=== PATIENT | male | born 1960 | race Caucasian/White ===

== ENCOUNTER 2017-12-04 13:14 | Inpatient (IN) ==
[2017-12-04 14:10] LABS: Baso # (Auto) 0.1 th/mm3 (0.0-0.2); Baso % (Auto) 1.2 % (0.0-2.0); Eos # (Auto) 0.1 th/mm3 (0.0-0.4); Eos % (Auto) 1.7 % (0.0-4.0); Hematocrit 35.9 % (39.0-51.0); Hemoglobin 11.9 gm/dL (13.0-17.0); Lymph # (Auto) 1.1 th/mm3 (1.0-4.8); Lymph % (Auto) 12.6 % (9.0-44.0); Mean Corpuscular HGB Conc 33.2 % (32.0-36.0); Mean Corpuscular Hemoglobin 27.8 pg (27.0-34.0); Mean Corpuscular Volume 83.7 fL (80.0-100.0); Mean Platelet Volume 6.3 fL (7.0-11.0); Mono # (Auto) 0.4 th/mm3 (0.0-0.9); Mono % (Auto) 4.3 % (0.0-8.0); Neut % (Auto) 80.2 % (16.0-70.0); Platelet Count 414 th/mm3 (150-450); Red Blood Count 4.29 mil/mm3 (4.50-5.90); Red Cell Distribution Width 14.1 % (11.6-17.2); White Blood Count 8.7 th/mm3 (4.0-11.0)
[2017-12-04 14:19] LABS: Activated Partial Thrombo Time 23.9 sec (24.3-30.1); Prothrombin Time 10.2 sec (9.8-11.6)
--- NOTE | 2017-12-04 14:24 | CT ---
EXAM DATE: 12/04/2017 2:17 PM EDT AGE/SEX: 57 years / Male INDICATIONS: Abdominal pain, history of lung mass. CLINICAL DATA: This is the patient's initial encounter. Patient reports that signs and symptoms have been present for 1 day and indicates a pain score of 8/10. MEDICAL/SURGICAL HISTORY: . lung mass None. RADIATION DOSE: 5.27 CTDI (mGy) ; Combined studies COMPARISON: [facility] [place], CT CHEST W/O CONTRAST, 12/04/2017. . TECHNIQUE: Multiple contiguous axial images were obtained through the abdomen. Images were obtained using multiple row detector helical technique. Using automated exposure control and adjustment of the mA and/or kV according to patient size, radiation dose was kept as low as reasonably achievable to o btain optimal diagnostic quality images. DICOM format image data is available electronically for rev iew and comparison. FINDINGS: Atherosclerotic calcifications of the aorta and iliac vessels are noted. Liver, gallbladder, spleen, pancreas, adrenals, kidneys unremarkable. Small fat-containing umbilical hernia. Urinary bladder is u nremarkable. There are a few diverticuli without evidence of diverticulitis. The appendix is normal. No adenopathy or aneurysm. The osseous structures are intact. There are groundglass infiltrates in th e right middle lobe and right lower lobe. There is a tiny noncalcified nodule on image 12 in the righ t lower lobe measuring 2.8 mm. There is a pleural-based 3 mm nodule on image 11 in the right lower lo be, a nodule measuring 3.7 mm on image 12 at the left lung base, as well as a noncalcified left lower lobe 5.1 mm nodule. CONCLUSION: 1. Atherosclerosis. 2. Mild diverticulosis. 3. Lung nodules and patchy groundglass infiltrates. Electronically signed by: Obinna Ornelas MD 12/04/2017 2:22 PM EDT
--- NOTE | 2017-12-04 14:26 | CT ---
EXAM DATE: 12/04/2017 2:17 PM EDT AGE/SEX: 57 years / Male INDICATIONS: Upper back pain radiating to chest. History of lung mass. CLINICAL DATA: This is the patient's initial encounter. Patient reports that signs and symptoms have been present for 2 weeks and indicates a pain score of 8/10. MEDICAL/SURGICAL HISTORY: . lung mass None. RADIATION DOSE: 5.27 CTDI (mGy) ; Combined studies COMPARISON: No prior exams available for comparison. TECHNIQUE: Multiple contiguous axial images were obtained through the chest without contrast. Image s were obtained in suspended respiration using multiple row detector helical technique. Using automa ann-marie exposure control and adjustment of the mA and/or kV according to patient size, radiation dose was kept as low as reasonably achievable to obtain optimal diagnostic quality images. DICOM format imag e data is available electronically for review and comparison. FINDINGS: Imaging through the pulmonary parenchyma demonstrates COPD changes with a 5.8 x 6.3 x 5.4 cm mass in the right upper lobe. This abuts the pleura. It is highly suspicious for malignancy. It would be read edwar amenable to CT-guided biopsy. The heart is normal in size. No significant hilar or mediastinal adenopathy is seen. There is minimal atherosclerotic plaquing in the coronary arteries. No pericardial or pleural effusion is identified. The limited portions of upper abdomen are unremarkable. The visualized bony structures demonstrate degenerative changes but are otherwise intact. CONCLUSION: 1. 5.8 x 6.3 x 5.4 cm mass in the right upper lobe highly suspicious for malignancy. This lesion is readily amenable to CT-guided biopsy. 2. COPD changes within the pulmonary parenchyma. 3. No significant hilar or mediastinal adenopathy is identified. Electronically signed by: Brennan Aggarwal MD 12/04/2017 2:24 PM EDT
--- NOTE | 2017-12-04 14:29 | ED ---
HPI General Chief complaint: Back Pain/Injury Stated complaint: Back / chest pain Time Seen by Provider: 12/04/17 13:29 History of Present Illness HPI narrative: 57 male back pain and shortness of breath. Patient was at [facility] on October 16 had CAT scan that showed lung mass in the right upper lobe, he was followed up by Dr. Stockton hematology oncology who recommended a PET scan. Patient is here today because of shortness of breath and back pain. Pain is worse when he takes a deep breath in. He smokes 1 pack a day for 42+ years, he is currently non-smoker, extensive family history of cancer on both sides, upon review of his chart: CT scan of the thorax with IV contrast dated 10/16/2017:Impression: 1. Mass within the posterior segment of the right upper lobe consistent with neoplasm measuring4.3 x 5.9 cm, contiguous with the overlying pleura.2. Bilateral subcentimeter pulmonary nodules. Cannot exclude metastatic disease.3. Small left adrenal gland nodule. Cannot exclude metastatic disease.4. Centrilobular and paraseptal emphysematous changes. Related Data Previous Rx's Medication Instructions Recorded gabapentin 100 mg PO BID 30 Days #60 cap 12/08/17 ipratropium-albuterol 1 amp NEB Q4HR NEB 30 Days #180 ml 12/08/17 sennosides [Senna Lax] 17.2 mg PO Q12H PRN 30 Days #60 tab 12/08/17 Allergies Allergy/AdvReac Type Severity Reaction Status Date / Time erythromycin base Allergy Intermediate Hives Verified 12/04/17 13:48 Review of Systems ROS: all other systems reviewed are negative [facility] Medical History Medical History Lung mass (Acute) No significant past surgical history (Acute) Pulmonary nodules/lesions, multiple (Acute) Tobacco abuse, in remission (Acute) Social History Social History Substance History: No History of Abuse Second Hand Smoke Exposure: No Smoking Status: Former smoker Tobacco Type: Cigarettes Packs Per Day: 1 Cigarettes Per Day: 20.0 Years Smoked: 42 Pack-Years: 42.00 Smoking End Date: June 2017 How Often Do You Have a Drink Containing Alcohol: Never Recent Out of Country Travel within the Last 8 Weeks: No Immunization History Tetanus Immunization: >5 Years Hx Influenza Vaccine This Season: No Exam Narrative Exam Narrative: GENERAL: Alert oriented 3 no acute distress. SKIN: Focused skin assessment warm/dry. HEAD: Atraumatic. Normocephalic. EYES: Pupils equal and round. No scleral icterus. No injection or drainage. ENT: No nasal bleeding or discharge. Mucous membranes pink and moist. NECK: Trachea midline. No JVD. CARDIOVASCULAR: Regular rate and rhythm. No murmur appreciated. RESPIRATORY: No accessory muscle use. Clear to auscultation. Breath sounds equal bilaterally. GASTROINTESTINAL: Abdomen soft, non-tender, nondistended. Hepatic and splenic margins not palpable. MUSCULOSKELETAL: No obvious deformities. No clubbing. No cyanosis. No edema. NEUROLOGICAL: Awake and alert. No obvious cranial nerve deficits. Motor grossly within normal limits. Normal speech. PSYCHIATRIC: Appropriate mood and affect; insight and judgment normal. Course Initial Documented Vital Signs Temperature 97.9 F 12/04/17 13:24 Pulse Rate 99 H 12/04/17 13:24 Respiratory Rate 19 12/04/17 13:24 Blood Pressure 138/97 H 12/04/17 13:24 Pulse Oximetry 98 12/04/17 13:24 Last Documented Vital Signs Temperature 98.4 F 12/08/17 07:00 Pulse Rate 85 12/08/17 09:05 Respiratory Rate 20 12/08/17 09:05 Blood Pressure 110/64 12/08/17 03:00 Pulse Oximetry 95 12/08/17 09:05 Medical Decision Making MDM Narrative Medical decision making narrative: 57 male here for evaluation of shortness of breath and back pain. CAT scan shows lung right upper lobe concerning for malignancy, given the fact that patient is hypoxic, patient would benefit from admission for further evaluation of the mass. Medical Screen Exam Complete: Yes Emergency Medical Condition: Yes Lab Data Result diagrams: 12/08/17 04:15 12/08/17 04:15 Lab Results 12/04/17 12/04/17 12/04/17 Range/Units 13:50 13:50 13:50 WBC 8.7 (4.0-11.0) th/mm3 RBC 4.29 L (4.50-5.90) mil/mm3 Hgb 11.9 L (13.0-17.0) gm/dL Hct 35.9 L (39.0-51.0) % MCV 83.7 (80.0-100.0) fL MCH 27.8 (27.0-34.0) pg MCHC 33.2 (32.0-36.0) % RDW 14.1 (11.6-17.2) % Plt Count 414 (150-450) th/mm3 MPV 6.3 L (7.0-11.0) fL Neut % (Auto) 80.2 H (16.0-70.0) % Lymph % (Auto) 12.6 (9.0-44.0) % [place] % (Auto) 4.3 (0.0-8.0) % Eos % (Auto) 1.7 (0.0-4.0) % Baso % (Auto) 1.2 (0.0-2.0) % Neut # (Auto) 7.0 (1.8-7.7) th/mm3 Lymph # (Auto) 1.1 (1.0-4.8) th/mm3 [place] # (Auto) 0.4 (0.0-0.9) th/mm3 Eos # (Auto) 0.1 (0.0-0.4) th/mm3 Baso # (Auto) 0.1 (0.0-0.2) th/mm3 WBC Differential . Differential Comment Auto diff final PT 10.2 (9.8-11.6) sec INR 1.0 Ratio APTT 23.9 L (24.3-30.1) sec Sodium (136-145) meq/L Potassium (3.5-5.1) meq/L Chloride (98-107) meq/L Carbon Dioxide (21.0-32.0) meq/L Anion Gap (5-15) meq/L BUN (7-18) mg/dL Creatinine (0.60-1.30) mg/dL Estimated GFR (>89) mL/min POC Glucose (68-110) mg/dl Random Glucose (74-106) mg/dL Lactic Acid (0.4-2.0) mmol/L Calcium (8.5-10.1) mg/dL Total Bilirubin (0.2-1.0) mg/dL AST (15-37) U/L ALT (12-78) U/L Alkaline Phosphatase (45-117) U/L Total Creatine Kinase Cancelled Troponin I Cancelled Total Protein (6.4-8.2) g/dL Albumin (3.4-5.0) g/dL Urine Color (Yellw/Straw) Urine Clarity (Clear) Urine pH (5.0-8.5) Ur Specific Led[place] (1.002-1.035) Urine Protein (Neg-Trace) mg/dL Urine Glucose (UA) (Negative) mg/dL Urine Ketones (Negative) mg/dL Urine Occult Blood (Negative) Urine Nitrate (Negative) Urine Bilirubin (Negative) Urine Urobilinogen (Less than 2) mg/dL Ur Leukocyte Esterase (Negative) Urine WBC (0-5) /hpf Hyaline Casts (0-3) /lpf Urine Mucus (Occasional) /lpf Micro UA Comment Ur Microscopic Review Urine Culture Comments 12/04/17 12/04/17 12/04/17 Range/Units 13:50 13:55 17:24 WBC (4.0-11.0) th/mm3 RBC (4.50-5.90) mil/mm3 Hgb (13.0-17.0) gm/dL Hct (39.0-51.0) % MCV (80.0-100.0) fL MCH (27.0-34.0) pg MCHC (32.0-36.0) % RDW (11.6-17.2) % Plt Count (150-450) th/mm3 MPV (7.0-11.0) fL Neut % (Auto) (16.0-70.0) % Lymph % (Auto) (9.0-44.0) % [place] % (Auto) (0.0-8.0) % Eos % (Auto) (0.0-4.0) % Baso % (Auto) (0.0-2.0) % Neut # (Auto) (1.8-7.7) th/mm3 Lymph # (Auto) (1.0-4.8) th/mm3 [place] # (Auto) (0.0-0.9) th/mm3 Eos # (Auto) (0.0-0.4) th/mm3 Baso # (Auto) (0.0-0.2) th/mm3 WBC Differential Differential Comment PT (9.8-11.6) sec INR Ratio APTT (24.3-30.1) sec Sodium 138 (136-145) meq/L Potassium 3.4 L (3.5-5.1) meq/L Chloride 102 (98-107) meq/L Carbon Dioxide 25.9 (21.0-32.0) meq/L Anion Gap 10 (5-15) meq/L BUN 14 (7-18) mg/dL Creatinine 1.33 H (0.60-1.30) mg/dL Estimated GFR 55 L (>89) mL/min POC Glucose (68-110) mg/dl Random Glucose 89 (74-106) mg/dL Lactic Acid 1.8 (0.4-2.0) mmol/L Calcium 9.0 (8.5-10.1) mg/dL Total Bilirubin 0.3 (0.2-1.0) mg/dL AST 18 (15-37) U/L ALT 12 (12-78) U/L Alkaline Phosphatase 92 (45-117) U/L Total Creatine Kinase 70 Troponin I Less than 0.02 L Total Protein 7.4 (6.4-8.2) g/dL Albumin 3.6 (3.4-5.0) g/dL Urine Color Yellow (Yellw/Straw) Urine Clarity Clear (Clear) Urine pH 5.0 (5.0-8.5) Ur Specific [place] 1.017 (1.002-1.035) Urine Protein Negative (Neg-Trace) mg/dL Urine Glucose (UA) Negative (Negative) mg/dL Urine Ketones Negative (Negative) mg/dL Urine Occult Blood Negative (Negative) Urine Nitrate Negative (Negative) Urine Bilirubin Negative (Negative) Urine Urobilinogen Less than 2 (Less than 2) mg/dL Ur Leukocyte Esterase Negative (Negative) Urine WBC 1 (0-5) /hpf Hyaline Casts 1 (0-3) /lpf Urine Mucus Few H (Occasional) /lpf Micro UA Comment Culture not ind Ur Microscopic Review Not Reportable Urine Culture Comments Culture not ind 12/04/17 12/05/17 12/05/17 Range/Units 21:19 04:52 04:52 WBC 7.4 (4.0-11.0) th/mm3 RBC 4.01 L (4.50-5.90) mil/mm3 Hgb 11.1 L (13.0-17.0) gm/dL Hct 33.7 L (39.0-51.0) % MCV 83.9 (80.0-100.0) fL MCH 27.8 (27.0-34.0) pg MCHC 33.1 (32.0-36.0) % RDW 13.9 (11.6-17.2) % Plt Count 374 (150-450) th/mm3 MPV 6.3 L (7.0-11.0) fL Neut % (Auto) 68.9 (16.0-70.0) % Lymph % (Auto) 19.4 (9.0-44.0) % [place] % (Auto) 6.8 (0.0-8.0) % Eos % (Auto) 4.0 (0.0-4.0) % Baso % (Auto) 0.9 (0.0-2.0) % Neut # (Auto) 5.1 (1.8-7.7) th/mm3 Lymph # (Auto) 1.4 (1.0-4.8) th/mm3 [place] # (Auto) 0.5 (0.0-0.9) th/mm3 Eos # (Auto) 0.3 (0.0-0.4) th/mm3 Baso # (Auto) 0.1 (0.0-0.2) th/mm3 WBC Differential . Differential Comment Auto diff final PT 10.0 (9.8-11.6) sec INR 1.0 Ratio APTT (24.3-30.1) sec Sodium (136-145) meq/L Potassium (3.5-5.1) meq/L Chloride (98-107) meq/L Carbon Dioxide (21.0-32.0) meq/L Anion Gap (5-15) meq/L BUN (7-18) mg/dL Creatinine (0.60-1.30) mg/dL Estimated GFR (>89) mL/min POC Glucose (68-110) mg/dl Random Glucose (74-106) mg/dL Lactic Acid (0.4-2.0) mmol/L Calcium (8.5-10.1) mg/dL Total Bilirubin (0.2-1.0) mg/dL AST (15-37) U/L ALT (12-78) U/L Alkaline Phosphatase (45-117) U/L Total Creatine Kinase Troponin I Less than 0.02 L Total Protein (6.4-8.2) g/dL Albumin (3.4-5.0) g/dL Urine Color (Yellw/Straw) Urine Clarity (Clear) Urine pH (5.0-8.5) Ur Specific [place] (1.002-1.035) Urine Protein (Neg-Trace) mg/dL Urine Glucose (UA) (Negative) mg/dL Urine Ketones (Negative) mg/dL Urine Occult Blood (Negative) Urine Nitrate (Negative) Urine Bilirubin (Negative) Urine Urobilinogen (Less than 2) mg/dL Ur Leukocyte Esterase (Negative) Urine WBC (0-5) /hpf Hyaline Casts (0-3) /lpf Urine Mucus (Occasional) /lpf Micro UA Comment Ur Microscopic Review Urine Culture Comments 12/05/17 12/05/17 12/06/17 Range/Units 04:52 08:11 07:17 WBC (4.0-11.0) th/mm3 RBC (4.50-5.90) mil/mm3 Hgb (13.0-17.0) gm/dL Hct (39.0-51.0) % MCV (80.0-100.0) fL MCH (27.0-34.0) pg MCHC (32.0-36.0) % RDW (11.6-17.2) % Plt Count (150-450) th/mm3 MPV (7.0-11.0) fL Neut % (Auto) (16.0-70.0) % Lymph % (Auto) (9.0-44.0) % [place] % (Auto) (0.0-8.0) % Eos % (Auto) (0.0-4.0) % Baso % (Auto) (0.0-2.0) % Neut # (Auto) (1.8-7.7) th/mm3 Lymph # (Auto) (1.0-4.8) th/mm3 [place] # (Auto) (0.0-0.9) th/mm3 Eos # (Auto) (0.0-0.4) th/mm3 Baso # (Auto) (0.0-0.2) th/mm3 WBC Differential Differential Comment PT (9.8-11.6) sec INR Ratio APTT (24.3-30.1) sec Sodium 140 137 (136-145) meq/L Potassium 4.1 3.8 (3.5-5.1) meq/L Chloride 104 102 (98-107) meq/L Carbon Dioxide 27.6 26.9 (21.0-32.0) meq/L Anion Gap 8 8 (5-15) meq/L BUN 12 11 (7-18) mg/dL Creatinine 1.28 1.29 (0.60-1.30) mg/dL Estimated GFR 58 L 57 L (>89) mL/min POC Glucose 99 (68-110) mg/dl Random Glucose 83 109 H (74-106) mg/dL Lactic Acid (0.4-2.0) mmol/L Calcium 8.8 8.6 (8.5-10.1) mg/dL Total Bilirubin 0.3 0.2 (0.2-1.0) mg/dL AST 16 16 (15-37) U/L ALT 12 10 L (12-78) U/L Alkaline Phosphatase 88 86 (45-117) U/L Total Creatine Kinase Troponin I Total Protein 7.2 6.4 D (6.4-8.2) g/dL Albumin 3.2 L 2.9 L (3.4-5.0) g/dL Urine Color (Yellw/Straw) Urine Clarity (Clear) Urine pH (5.0-8.5) Ur Specific [place] (1.002-1.035) Urine Protein (Neg-Trace) mg/dL Urine Glucose (UA) (Negative) mg/dL Urine Ketones (Negative) mg/dL Urine Occult Blood (Negative) Urine Nitrate (Negative) Urine Bilirubin (Negative) Urine Urobilinogen (Less than 2) mg/dL Ur Leukocyte Esterase (Negative) Urine WBC (0-5) /hpf Hyaline Casts (0-3) /lpf Urine Mucus (Occasional) /lpf Micro UA Comment Ur Microscopic Review Urine Culture Comments 12/06/17 12/07/17 12/07/17 Range/Units 07:17 05:13 05:13 WBC 7.8 7.5 (4.0-11.0) th/mm3 RBC 3.70 L 3.73 L (4.50-5.90) mil/mm3 Hgb 10.4 L 10.4 L (13.0-17.0) gm/dL Hct 30.5 L 31.1 L (39.0-51.0) % MCV 82.4 83.3 (80.0-100.0) fL MCH 28.1 27.7 (27.0-34.0) pg MCHC 34.1 33.3 (32.0-36.0) % RDW 14.1 14.0 (11.6-17.2) % Plt Count 336 319 (150-450) th/mm3 MPV 6.2 L 6.2 L (7.0-11.0) fL Neut % (Auto) 74.6 H 69.2 (16.0-70.0) % Lymph % (Auto) 12.4 16.3 (9.0-44.0) % [place] % (Auto) 8.5 H 9.0 H (0.0-8.0) % Eos % (Auto) 3.9 4.7 H (0.0-4.0) % Baso % (Auto) 0.6 0.8 (0.0-2.0) % Neut # (Auto) 5.8 5.2 (1.8-7.7) th/mm3 Lymph # (Auto) 1.0 1.2 (1.0-4.8) th/mm3 [place] # (Auto) 0.7 0.7 (0.0-0.9) th/mm3 Eos # (Auto) 0.3 0.3 (0.0-0.4) th/mm3 Baso # (Auto) 0.0 0.1 (0.0-0.2) th/mm3 WBC Differential . . Differential Comment Auto diff final Auto diff final PT (9.8-11.6) sec INR Ratio APTT (24.3-30.1) sec Sodium 139 (136-145) meq/L Potassium 4.0 (3.5-5.1) meq/L Chloride 104 (98-107) meq/L Carbon Dioxide 26.8 (21.0-32.0) meq/L Anion Gap 8 (5-15) meq/L BUN 14 (7-18) mg/dL Creatinine 1.34 H (0.60-1.30) mg/dL Estimated GFR 55 L (>89) mL/min POC Glucose (68-110) mg/dl Random Glucose 99 (74-106) mg/dL Lactic Acid (0.4-2.0) mmol/L Calcium 8.1 L (8.5-10.1) mg/dL Total Bilirubin 0.2 (0.2-1.0) mg/dL AST 13 L (15-37) U/L ALT 10 L (12-78) U/L Alkaline Phosphatase 87 (45-117) U/L Total Creatine Kinase Troponin I Total Protein 6.5 (6.4-8.2) g/dL Albumin 3.0 L (3.4-5.0) g/dL Urine Color (Yellw/Straw) Urine Clarity (Clear) Urine pH (5.0-8.5) Ur Specific [place] (1.002-1.035) Urine Protein (Neg-Trace) mg/dL Urine Glucose (UA) (Negative) mg/dL Urine Ketones (Negative) mg/dL Urine Occult Blood (Negative) Urine Nitrate (Negative) Urine Bilirubin (Negative) Urine Urobilinogen (Less than 2) mg/dL Ur Leukocyte Esterase (Negative) Urine WBC (0-5) /hpf Hyaline Casts (0-3) /lpf Urine Mucus (Occasional) /lpf Micro UA Comment Ur Microscopic Review Urine Culture Comments 12/08/17 12/08/17 Range/Units 04:15 04:15 WBC 7.5 (4.0-11.0) th/mm3 RBC 3.76 L (4.50-5.90) mil/mm3 Hgb 10.6 L (13.0-17.0) gm/dL Hct 31.5 L (39.0-51.0) % MCV 83.9 (80.0-100.0) fL MCH 28.3 (27.0-34.0) pg MCHC 33.7 (32.0-36.0) % RDW 14.2 (11.6-17.2) % Plt Count 339 (150-450) th/mm3 MPV 6.2 L (7.0-11.0) fL Neut % (Auto) 72.9 H (16.0-70.0) % Lymph % (Auto) 15.5 (9.0-44.0) % [place] % (Auto) 7.8 (0.0-8.0) % Eos % (Auto) 3.1 (0.0-4.0) % Baso % (Auto) 0.7 (0.0-2.0) % Neut # (Auto) 5.5 (1.8-7.7) th/mm3 Lymph # (Auto) 1.2 (1.0-4.8) th/mm3 [place] # (Auto) 0.6 (0.0-0.9) th/mm3 Eos # (Auto) 0.2 (0.0-0.4) th/mm3 Baso # (Auto) 0.1 (0.0-0.2) th/mm3 WBC Differential . Differential Comment Auto diff final PT (9.8-11.6) sec INR Ratio APTT (24.3-30.1) sec Sodium 137 (136-145) meq/L Potassium 4.1 (3.5-5.1) meq/L Chloride 103 (98-107) meq/L Carbon Dioxide 24.9 (21.0-32.0) meq/L Anion Gap 9 (5-15) meq/L BUN 16 (7-18) mg/dL Creatinine 1.36 H (0.60-1.30) mg/dL Estimated GFR 54 L (>89) mL/min POC Glucose (68-110) mg/dl Random Glucose 100 (74-106) mg/dL Lactic Acid (0.4-2.0) mmol/L Calcium 8.6 (8.5-10.1) mg/dL Total Bilirubin (0.2-1.0) mg/dL AST (15-37) U/L ALT (12-78) U/L Alkaline Phosphatase (45-117) U/L Total Creatine Kinase Troponin I Total Protein (6.4-8.2) g/dL Albumin (3.4-5.0) g/dL Urine Color (Yellw/Straw) Urine Clarity (Clear) Urine pH (5.0-8.5) Ur Specific [place] (1.002-1.035) Urine Protein (Neg-Trace) mg/dL Urine Glucose (UA) (Negative) mg/dL Urine Ketones (Negative) mg/dL Urine Occult Blood (Negative) Urine Nitrate (Negative) Urine Bilirubin (Negative) Urine Urobilinogen (Less than 2) mg/dL Ur Leukocyte Esterase (Negative) Urine WBC (0-5) /hpf Hyaline Casts (0-3) /lpf Urine Mucus (Occasional) /lpf Micro UA Comment Ur Microscopic Review Urine Culture Comments Imaging Data Radiologist's impression: Abdomen/Pelvis CT 12/04/17 13:48 CONCLUSION: 1. Atherosclerosis. 2. Mild diverticulosis. 3. Lung nodules and patchy groundglass infiltrates. Chest CT 12/04/17 13:48 CONCLUSION: 1. 5.8 x 6.3 x 5.4 cm mass in the right upper lobe highly suspicious for malignancy. This lesion is readily amenable to CT-guided biopsy. 2. COPD changes within the pulmonary parenchyma. 3. No significant hilar or mediastinal adenopathy is identified. Head CT 12/05/17 00:00 CONCLUSION: Abnormal. Recommend further evaluation with brain MRI and MRA Lung Biopsy CT 12/05/17 00:00 CONCLUSION: 1. Uncomplicated CT guided biopsy. Chest X-Ray 12/05/17 09:03 CONCLUSION: No pneumothorax Head MRI 12/06/17 00:00 CONCLUSION: 1. Negative MR Brain with and without contrast. Head MRA 12/06/17 00:00 CONCLUSION: 1. Normal variant with origin of the right posterior cerebral artery. 2. Otherwise normal MRA without evidence of steno-occlusive disease, aneurysm, vascular malformation or vasculopathy. Discharge Plan Discharge Disposition Patient Disposition: 01 Discharge Home Discharge Condition Condition: Stable Discharge Order Discharge Orders: Discharge Order (Routine); Ordered 12/08/17 Ordered By: Michelle Nuno Discharge Details Anticipated Discharge Date: 12/08/17 Physicians Team ED Provider: Masoud Howard Primary Care Provider: Primary Care Tushar,Jasmin Attending Provider: Mackenzie Lancaster Other Providers: Cooper Mckeon Cary Status ED Status: Left Department Discharge Information Discharge Date/Time: 12/04/17 16:30
[2017-12-04 14:35] LABS: Albumin 3.6 g/dL (3.4-5.0); Anion Gap 10 meq/L (5-15); Aspartate Aminotransferase 18 U/L (15-37); Blood Urea Nitrogen 14 mg/dL (7-18); Carbon Dioxide 25.9 meq/L (21.0-32.0); Chloride 102 meq/L (98-107); Glomerular Filtration Rate 55 mL/min (>89); Glucose,Random 89 mg/dL (74-106); Potassium 3.4 meq/L (3.5-5.1); Sodium 138 meq/L (136-145)
[2017-12-04 14:39] LABS: Alanine Aminotransferase 12 U/L (12-78); Alkaline Phosphatase 92 U/L (45-117); Total Protein 7.4 g/dL (6.4-8.2)
[2017-12-04 14:40] LABS: Creatine Kinase 70 U/L (39-308)
--- NOTE | 2017-12-04 14:59 | P.HPFP ---
History of Present Illness Primary Care Physician: No Primary Care Physician <Mackenzie Lancaster - 12/05/17 13:43> No Primary Care Physician <Michelle Nuno - 12/04/17 14:59> History of Present Illness: 57-year-old male with a history of right lung mass who presented to the ED with severe right shoulder pain. The pain is constant, stabbing in nature, and radiates from the back through the front of the chest. Patient was seen at [facility] about 6 weeks ago for the same right shoulder pain and was found to have a right lung mass. Patient saw Dr. Mckeon, oncologist, one time as an outpatient. Dr. Mckeon suggested patient to have a PET scan and lung biopsy. Patient was prescribed pain medicines and to follow- up after these tests were completed. Due to insurance issues, patient was not able to complete these or fill the pain medications. Today patient reports that he is short of breath, but this has been his normal for the past several weeks. He does report increased dyspnea on exertion which is made it difficult for him get through his work days. He has a reactive cough with bloody sputum. Past medical history: Patient has not seen a physician in many years. He denies any other medical problems. 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, lives with son in [facility] [id number] history but patient quit smoking 140 days ago Denies drug use or alcohol use Code Status: Full code <Michelle Nuno - 12/04/17 16:19> - Diagnosis (1) Mass of right lung (2) Back pain (3) COPD (chronic obstructive pulmonary disease) (4) Elevated serum creatinine (5) History of tobacco abuse (6) DVT prophylaxis (7) Nutrition, metabolism, and development symptoms <Mackenzie Lancaster - 12/05/17 13:43> (1) Mass of right lung (2) Back pain (3) COPD (chronic obstructive pulmonary disease) (4) Elevated serum creatinine (5) History of tobacco abuse (6) DVT prophylaxis (7) Nutrition, metabolism, and development symptoms <Michelle Nuno - 12/04/17 16:21> Inpatient Certification: I certify that the inpatient services were ordered in accordance with Medicare regulations governing the order. This includes certification that hospital inpatient services are reasonable and necessary and in the case of services not specified as inpatient-only under 42 CFR 419.22(n), that they are appropriately provided as inpatient services in accordance to with the 2-midnight benchmark under 43 CFR 412.3(e) <Mackenzie Lancaster - 12/05/17 13:43> Review of Systems Constitutional: Reports headache(s), Denies body ache(s), Denies chills, Denies fever(s), Denies night sweats <Michelle Nuno Aryan - 12/04/17 15:20> Eyes: Denies blurry vision, Denies bulging eyes, Denies change in vision < Michelle Nuno Aryan 12/04/17 15:20> Ears, Nose, Mouth, and Throat: Reports headache(s) <Michelle Nuno - 15:20> Cardiovascular: Denies chest pain, Denies leg swelling <Michelle Nuno - 15:20> Respiratory: Reports cough, Reports coughing up blood, Reports shortness of breath, Reports shortness of breath with activity <Michelle Nuno - 15:20> Gastrointestinal: Reports abdominal pain, Reports constipation, Reports heartburn, Denies black, tarry stools <Michelle Nuno - 12/04/17 15:20> Genitourinary: Denies blood in urine, Denies difficulty urinating <Michelle Nuno 12/04/17 15:20> Musculoskeletal: Reports back pain <Michelle Nuno - 12/04/17 15:20> Neurologic: Reports headache(s) <Michelle Nuno 12/04/17 15:20> Psychiatric: Reports anxiety, Reports confusion <Michelle Nuno 12/04/17 15:20> PMFSH - History History Provided By: Patient <Michelle Nuno 12/04/17 14:59> - Medical History Medical History: Medical History (Last Updated 12/04/17 @ 13:45 by Esther Fonseca) Lung mass No significant past surgical history <Mackenzie Lancaster - 12/05/17 13:43> Medical History (Last Updated 12/04/17 @ 13:45 by Esther Fonseca) Lung mass No significant past surgical history <Michelle Nuno - 12/04/17 14:59> - Tobacco History Second Hand Smoke Exposure: No <YaakovMichelle Baeza - 12/04/17 14:59> Tobacco Use In Past 30 Days: No <YaakovMichelle Baeza - 12/04/17 14:59> Smoking Status: Former smoker <YaakovMichelle Baeza - 12/04/17 14:59> Tobacco Type: Cigarettes <YaakovMichelle Baeza - 12/04/17 14:59> - Alcohol History How Often Do You Have a Drink Containing Alcohol: Never <RobertariasmitaMichelle Baeza - 12/04/17 14:59> - Substance Use History Substance History: No History of Abuse <YaakovMichelle Baeza - 12/04/17 14:59> - Travel History Recent Travel Out of the Country Within the Last 8 Weeks: No <RobertemmaMichelle Baeza - 12/04/17 14:59> - Immunization History Tetanus Immunization: >5 Years <RobertaaronMichelle Baeza - 12/04/17 14:59> Hx Influenza Vaccine This Season: No <RobertaaronMichelle Baeza 12/04/17 14:59> Medications and Allergies Allergies Allergy/AdvReac Type Severity Reaction Status Date / Time erythromycin base Allergy Intermediate Hives Verified 12/04/17 13:48 <Mackenzie Lancaster - 12/05/17 13:43> Home Medications Medication Instructions Recorded Confirmed Type No Known Home Medications 12/04/17 12/04/17 History <Mackenzie Lancaster - 12/05/17 13:43> Active Medications: Active Medications Acetaminophen (Tylenol) 650 mg PO Q6HR PRN PRN Reason: PAIN SCALE 1 TO 2 Al Hydroxide/Mg Hydroxide (Milk Of Magnesia Liq) 30 ml PO Q12H PRN PRN Reason: Mild Constipation Albuterol (Duoneb Neb (Arina)) 1 ampul NEB Q4HR NEB ARINA Last Admin: 12/05/17 11:01 Dose: Not Given Bisacodyl (Dulcolax Supp) 10 mg RECTAL DAILY PRN PRN Reason: SEVERE CONSITIPATION Lactulose (Lactulose Liq) 30 ml PO DAILY PRN PRN Reason: SEVERE CONSITIPATION Morphine Sulfate (Morphine Inj) 2 mg IV.PUSH Q3H PRN PRN Reason: BREAKTHROUGH PAIN Naloxone HCl (Narcan Inj) 0.4 mg IV.PUSH UNSCH PRN PRN Reason: SEE LABEL COMMENTS Ondansetron HCl (Zofran Inj) 4 mg IV.PUSH Q6H PRN PRN Reason: NAUSEA OR VOMITING Oxycodone HCl (Roxicodone) 5 mg PO Q4H PRN PRN Reason: PAIN SCALE 3 TO 5 Oxycodone HCl (Roxicodone) 10 mg PO Q4H PRN PRN Reason: PAIN SCALE 6 TO 10 Last Admin: 12/05/17 00:28 Dose: 10 mg Sennosides (Senokot) 17.2 mg PO Q12H PRN PRN Reason: Moderate Constipation Zolpidem Tartrate (Ambien) 5 mg PO HS PRN PRN Reason: INSOMNIA <Mackenzie Lancaster - 12/05/17 13:43> Exam Vital signs: Vital Signs 12/04/17 14:27 12/04/17 14:30 12/04/17 16:25 Temperature 97.8 F 97.7 F Pulse Rate 98 H 78 Respiratory Rate 24 20 Blood Pressure 124/88 130/77 Pulse Oximetry 92 L 92 L 99 12/04/17 16:49 12/04/17 20:00 12/05/17 00:00 Temperature 97.6 F 97.9 F 98.7 F Pulse Rate 80 89 84 Respiratory Rate 21 20 18 Blood Pressure 144/84 H 137/82 144/91 H Pulse Oximetry 99 99 98 12/05/17 00:19 12/05/17 04:00 12/05/17 07:57 Temperature 98 F Pulse Rate 94 H 81 80 Respiratory Rate 14 18 14 Blood Pressure 131/83 Pulse Oximetry 98 100 12/05/17 08:14 12/05/17 09:15 12/05/17 09:30 Temperature 97.7 F Pulse Rate 85 82 83 Respiratory Rate 18 18 18 Blood Pressure 133/89 119/84 127/76 Pulse Oximetry 97 92 L 96 12/05/17 10:00 12/05/17 10:30 12/05/17 11:00 Temperature Pulse Rate 84 82 84 Respiratory Rate 18 18 Blood Pressure 118/77 116/86 116/83 Pulse Oximetry 95 95 95 12/05/17 12:00 Temperature 98.1 F Pulse Rate 82 Respiratory Rate 17 Blood Pressure 124/80 Pulse Oximetry 95 Intake & Output 12/04/17 12/05/17 12/05/17 18:59 06:59 18:59 Output Total 150 / 150 Balance -150 / -150 Weight 81.647 kg 81.647 kg Output: Urine 150 / 150 Other: # Voids 2 <Mackenzie Lancaster - 12/05/17 13:43> Vital Signs 12/04/17 13:24 12/04/17 14:27 12/04/17 14:30 Temperature 97.9 F 97.8 F Pulse Rate 99 H 98 H Respiratory Rate 19 24 Blood Pressure 138/97 H 124/88 Pulse Oximetry 98 92 L 92 L Intake & Output 12/03/17 12/04/17 12/04/17 18:59 06:59 18:59 Weight 81.647 kg <Dexter Nunoa A - 12/04/17 14:59> - Constitutional Comments: Tearful at times when discussing lung mass <Dexter Nunoa A - 12/04/17 16:19> - Routine HEENT Exam Head: Present: normocephalic, atraumatic <Dexter Nunoa A - 12/04/17 16:19> Eye: Present: PERRL, conjunctivae pink <YaakovMichelle A - 12/04/17 16:19> ENT: Present: mucous membranes moist <YaakovMichelle A - 12/04/17 16:19> - Routine Neck Exam Present: supple <Dexter Nunoa A - 12/04/17 16:19> - Routine Respiratory Exam Present: crackles (at bilateral lung bases), distant breath sounds. Absent: respiratory distress <Dexter Nunoa A - 12/04/17 16:19> - Routine Cardiovascular Exam Present: RRR, S1, S2 <Michelle Nuno - 12/04/17 16:19> - Routine Abdominal Exam Present: soft, normoactive bowel sounds. Absent: tenderness <Michelle Nuno - 12/04/17 16:19> - Routine Neurological Exam Present: alert, oriented X3 <Michelle Nuno - 12/04/17 16:19> Results - Labs Result diagrams: 12/05/17 04:52 12/05/17 04:52 <TonnyMackenzie - 12/05/17 13:43> Abnormal lab results 12/04/17 12/04/17 12/04/17 Range/Units 13:50 13:50 13:50 RBC 4.29 L (4.50-5.90) mil/mm3 Hgb 11.9 L (13.0-17.0) gm/dL Hct 35.9 L (39.0-51.0) % MPV 6.3 L (7.0-11.0) fL Neut % (Auto) 80.2 H (16.0-70.0) % APTT 23.9 L (24.3-30.1) sec Potassium 3.4 L (3.5-5.1) meq/L Creatinine 1.33 H (0.60-1.30) mg/dL Estimated GFR 55 L (>89) mL/min Troponin I Less than 0.02 L (0.02-0.05) ng/mL Albumin (3.4-5.0) g/dL Urine Mucus (Occasional) /lpf 12/04/17 12/04/17 12/05/17 Range/Units 17:24 21:19 04:52 RBC 4.01 L (4.50-5.90) mil/mm3 Hgb 11.1 L (13.0-17.0) gm/dL Hct 33.7 L (39.0-51.0) % MPV 6.3 L (7.0-11.0) fL Neut % (Auto) (16.0-70.0) % APTT (24.3-30.1) sec Potassium (3.5-5.1) meq/L Creatinine (0.60-1.30) mg/dL Estimated GFR (>89) mL/min Troponin I Less than 0.02 L (0.02-0.05) ng/mL Albumin (3.4-5.0) g/dL Urine Mucus Few H (Occasional) /lpf 12/05/17 Range/Units 04:52 RBC (4.50-5.90) mil/mm3 Hgb (13.0-17.0) gm/dL Hct (39.0-51.0) % MPV (7.0-11.0) fL Neut % (Auto) (16.0-70.0) % APTT (24.3-30.1) sec Potassium (3.5-5.1) meq/L Creatinine (0.60-1.30) mg/dL Estimated GFR 58 L (>89) mL/min Troponin I (0.02-0.05) ng/mL Albumin 3.2 L (3.4-5.0) g/dL Urine Mucus (Occasional) /lpf Short CBC 12/04/17 12/05/17 Range/Units 13:50 04:52 WBC 8.7 7.4 (4.0-11.0) th/mm3 Hgb 11.9 L 11.1 L (13.0-17.0) gm/dL Hct 35.9 L 33.7 L (39.0-51.0) % Plt Count 414 374 (150-450) th/mm3 BMP 12/04/17 12/05/17 13:50 04:52 Sodium 138 140 Potassium 3.4 L 4.1 Chloride 102 104 Carbon Dioxide 25.9 27.6 BUN 14 12 Creatinine 1.33 H 1.28 Calcium 9.0 8.8 Cardiac Enzymes 12/04/17 12/04/17 12/04/17 Range/Units 13:50 13:50 21:19 Total Creatine Kinase Cancelled 70 Troponin I Cancelled Less than 0.02 L Less than 0.02 L Liver Function 12/04/17 12/05/17 Range/Units 13:50 04:52 Total Bilirubin 0.3 0.3 (0.2-1.0) mg/dL AST 18 16 (15-37) U/L ALT 12 12 (12-78) U/L Alkaline Phosphatase 92 88 (45-117) U/L Albumin 3.6 3.2 L (3.4-5.0) g/dL Urine 12/04/17 Range/Units 17:24 Urine Color Yellow (Yellw/Straw) Urine Clarity Clear (Clear) Urine pH 5.0 (5.0-8.5) Ur Specific [place] 1.017 (1.002-1.035) Urine Protein Negative (Neg-Trace) mg/dL Urine Glucose (UA) Negative (Negative) mg/dL <Mackenzie Lancaster - 12/05/17 13:43> Abnormal lab results 12/04/17 12/04/17 12/04/17 Range/Units 13:50 13:50 13:50 RBC 4.29 L (4.50-5.90) mil/mm3 Hgb 11.9 L (13.0-17.0) gm/dL Hct 35.9 L (39.0-51.0) % MPV 6.3 L (7.0-11.0) fL Neut % (Auto) 80.2 H (16.0-70.0) % APTT 23.9 L (24.3-30.1) sec Potassium 3.4 L (3.5-5.1) meq/L Creatinine 1.33 H (0.60-1.30) mg/dL Estimated GFR 55 L (>89) mL/min Troponin I Less than 0.02 L (0.02-0.05) ng/mL Short CBC 12/04/17 Range/Units 13:50 WBC 8.7 (4.0-11.0) th/mm3 Hgb 11.9 L (13.0-17.0) gm/dL Hct 35.9 L (39.0-51.0) % Plt Count 414 (150-450) th/mm3 BMP 12/04/17 13:50 Sodium 138 Potassium 3.4 L Chloride 102 Carbon Dioxide 25.9 BUN 14 Creatinine 1.33 H Calcium 9.0 Cardiac Enzymes 12/04/17 12/04/17 Range/Units 13:50 13:50 Total Creatine Kinase Cancelled 70 Troponin I Cancelled Less than 0.02 L Liver Function 12/04/17 Range/Units 13:50 Total Bilirubin 0.3 (0.2-1.0) mg/dL AST 18 (15-37) U/L ALT 12 (12-78) U/L Alkaline Phosphatase 92 (45-117) U/L Albumin 3.6 (3.4-5.0) g/dL <Michelle Nuno - 12/04/17 14:59> - Imaging Impressions Abdomen/Pelvis CT 12/04/17 13:48 CONCLUSION: 1. Atherosclerosis. 2. Mild diverticulosis. 3. Lung nodules and patchy groundglass infiltrates. Chest CT 12/04/17 13:48 CONCLUSION: 1. 5.8 x 6.3 x 5.4 cm mass in the right upper lobe highly suspicious for malignancy. This lesion is readily amenable to CT-guided biopsy. 2. COPD changes within the pulmonary parenchyma. 3. No significant hilar or mediastinal adenopathy is identified. Head CT 12/05/17 00:00 CONCLUSION: Abnormal. Recommend further evaluation with brain MRI and MRA Lung Biopsy CT 12/05/17 00:00 CONCLUSION: 1. Uncomplicated CT guided biopsy. Chest X-Ray 12/05/17 09:03 CONCLUSION: No pneumothorax <Mackenzie Lancaster - 12/05/17 13:43> Impressions Abdomen/Pelvis CT 12/04/17 13:48 CONCLUSION: 1. Atherosclerosis. 2. Mild diverticulosis. 3. Lung nodules and patchy groundglass infiltrates. Chest CT 12/04/17 13:48 CONCLUSION: 1. 5.8 x 6.3 x 5.4 cm mass in the right upper lobe highly suspicious for malignancy. This lesion is readily amenable to CT-guided biopsy. 2. COPD changes within the pulmonary parenchyma. 3. No significant hilar or mediastinal adenopathy is identified. <Michelle Nuno - 12/04/17 14:59> Caprini VTE Risk Assessment Caprini VTE Risk Assessment: Moderate/High Risk (score >= 2) <Michelle Nuno - 12/04/17 16:19> Caprini Risk Assessment Model: Point Value = 1 Point Value = 2 Point Value = 3 Point Value = 5 Age 41-60 Minor surgery BMI > 25 kg/m2 Swollen legs Varicose veins or History of unexplained or recurrent spontaneous Oral contraceptives or hormone replacement Sepsis (< 1 month) Serious lung disease, including pneumonia (< 1 month) Abnormal pulmonary function Acute myocardial infarction Congestive heart failure (< 1 month) History of inflammatory bowel disease Medical patient at bed rest Age 61-74 Arthroscopic surgery Major open surgery (> 45 min) Laparoscopic surgery (> 45 min) Malignancy Confined to bed (> 72 hours) Immobilizing plaster cast Central venous access Age >= 75 History of VTE Family history of VTE Factor V Leiden Prothrombin [id number] Lupus anticoagulant Anticardiolipin antibodies Elevated serum homocysteine Heparin-induced thrombocytopenia Other congenital or acquired thrombophilia Stroke (< 1 month) Elective arthroplasty Hip, pelvis, or leg fracture Acute spinal cord injury (< 1 month) <Mackenzie Lancaster - 12/05/17 13:43> Point Value = 1 Point Value = 2 Point Value = 3 Point Value = 5 Age 41-60 Minor surgery BMI > 25 kg/m2 Swollen legs Varicose veins or History of unexplained or recurrent spontaneous Oral contraceptives or hormone replacement Sepsis (< 1 month) Serious lung disease, including pneumonia (< 1 month) Abnormal pulmonary function Acute myocardial infarction Congestive heart failure (< 1 month) History of inflammatory bowel disease Medical patient at bed rest Age 61-74 Arthroscopic surgery Major open surgery (> 45 min) Laparoscopic surgery (> 45 min) Malignancy Confined to bed (> 72 hours) Immobilizing plaster cast Central venous access Age >= 75 History of VTE Family history of VTE Factor V Leiden Prothrombin [id number] Lupus anticoagulant Anticardiolipin antibodies Elevated serum homocysteine Heparin-induced thrombocytopenia Other congenital or acquired thrombophilia Stroke (< 1 month) Elective arthroplasty Hip, pelvis, or leg fracture Acute spinal cord injury (< 1 month) <Michelle Nuno - 12/04/17 14:59> Prophylaxis Regimen: Total Risk Factor Score Risk Level Prophylaxis Regimen 0-1 Low Early ambulation 2 Moderate Order ONE of the following: *Sequential Compression Device (SCD) *Heparin 5000 units SQ BID 3-4 Higher Order ONE of the following medications: *Heparin 5000 units SQ TID *Enoxaparin/Lovenox 40 mg SQ daily (WT < 150 kg, CrCl > 30 mL/min) *Enoxaparin/Lovenox 30 mg SQ daily (WT < 150 kg, CrCl > 10-29 mL/min) *Enoxaparin/Lovenox 30 mg SQ BID (WT < 150 kg, CrCl > 30 mL/min) AND/OR *Sequential Compression Device (SCD) 5 or more Highest Order ONE of the following medications: *Heparin 5000 units SQ TID (Preferred with Epidurals) *Enoxaparin/Lovenox 40 mg SQ daily (WT < 150 kg, CrCl > 30 mL/min) *Enoxaparin/Lovenox 30 mg SQ daily (WT < 150 kg, CrCl > 10-29 mL/min) *Enoxaparin/Lovenox 30 mg SQ BID (WT < 150 kg, CrCl > 30 mL/min) AND *Sequential Compression Device (SCD) <Mackenzie Lancaster - 12/05/17 13:43> Total Risk Factor Score Risk Level Prophylaxis Regimen 0-1 Low Early ambulation 2 Moderate Order ONE of the following: *Sequential Compression Device (SCD) *Heparin 5000 units SQ BID 3-4 Higher Order ONE of the following medications: *Heparin 5000 units SQ TID *Enoxaparin/Lovenox 40 mg SQ daily (WT < 150 kg, CrCl > 30 mL/min) *Enoxaparin/Lovenox 30 mg SQ daily (WT < 150 kg, CrCl > 10-29 mL/min) *Enoxaparin/Lovenox 30 mg SQ BID (WT < 150 kg, CrCl > 30 mL/min) AND/OR *Sequential Compression Device (SCD) 5 or more Highest Order ONE of the following medications: *Heparin 5000 units SQ TID (Preferred with Epidurals) *Enoxaparin/Lovenox 40 mg SQ daily (WT < 150 kg, CrCl > 30 mL/min) *Enoxaparin/Lovenox 30 mg SQ daily (WT < 150 kg, CrCl > 10-29 mL/min) *Enoxaparin/Lovenox 30 mg SQ BID (WT < 150 kg, CrCl > 30 mL/min) AND *Sequential Compression Device (SCD) <Michelle Nuno - 12/04/17 14:59> Assessment and Plan - Assessment (1) Mass of right lung Code(s): R91.8 - Other nonspecific abnormal finding of lung field Status: Acute (2) Back pain Code(s): M54.9 - Dorsalgia, unspecified Status: Acute (3) COPD (chronic obstructive pulmonary disease) Code(s): J44.9 - Chronic obstructive pulmonary disease, unspecified Status: Acute (4) Elevated serum creatinine Code(s): R79.89 - Other specified abnormal findings of blood chemistry Status : Acute (5) History of tobacco abuse Code(s): Z87.891 - Personal history of nicotine dependence Status: Acute (6) DVT prophylaxis Status: Acute (7) Nutrition, metabolism, and development symptoms Code(s): R63.8 - Other symptoms and signs concerning food and fluid intake Status: Acute <Mackenzie Lancaster - 12/05/17 13:43> (1) Mass of right lung Code(s): R91.8 - Other nonspecific abnormal finding of lung field Status: Acute Plan: 57 yo male with a known 6cm mass in the right lung. Patient follows with Dr. Mckeon. -Consult to Dr. Mckeon, oncology -Consult IR for CT guided biopsy which will likely be tomorrow * NPO after midnight * repeat PT/INR tomorrow morning * SCDs only for VTE prophylaxis in anticipation of procedure tomorrow -Consult CM to aid in outpatient arrangements of medications, interventions, appointments (2) Back pain Code(s): M54.9 - Dorsalgia, unspecified Status: Acute Plan: Right sided upper back pain likely due to lung mass but could also be musculoskeletal due to his active job. - Pain scale with acetaminophen, oxycodone and morphine (3) COPD (chronic obstructive pulmonary disease) Code(s): J44.9 - Chronic obstructive pulmonary disease, unspecified Status: Acute Plan: Patient with a 42 year pack smoking history. - Duoneb treatments Q4hr - Will not start IV fluids due to patient's respiratory status. PO intake at this time. (4) Elevated serum creatinine Code(s): R79.89 - Other specified abnormal findings of blood chemistry Status : Acute Plan: Patient had elevated creatinine at 1.33. He had a creatinine at 1.32 at his last visit in 11/05/17. This is likely CKD. - Monitor creatinine (5) History of tobacco abuse Code(s): Z87.891 - Personal history of nicotine dependence Status: Acute Plan: Patient with 42 pack year smoking history. He quit about 5 months ago. (6) DVT prophylaxis Status: Acute Plan: -bilateral SCDs -Defer chemical prophylaxis due to IR procedure tomorrow. (7) Nutrition, metabolism, and development symptoms Code(s): R63.8 - Other symptoms and signs concerning food and fluid intake Status: Acute Plan: -NPO diet in anticipation for IR biopsy today or tomorrow <Michelle Nuno - 12/04/17 16:21> - Attending Attestation Pt. seen, examined and discussed with the medicine team. I agree with the plan. <Mackenzie Lancaster - 12/05/17 13:43>
[2017-12-04] MEDS ORDERED: Bisacodyl 10 MG Supp RECTAL PRN (15:29)
[2017-12-04] MEDS ORDERED: Acetaminophen 325 MG Tablet PO PRN (15:29)
[2017-12-04] MEDS ORDERED: Morphine Inj 4 MG/ML Vial IV.PUSH PRN ×2 (15:29→16:08)
[2017-12-04] MEDS ORDERED: Naloxone Inj 0.4 MG/ML Vial IV.PUSH PRN (15:29)
--- NOTE | 2017-12-04 15:45 | P.PNFP ---
Subjective Interval history: This is a 57-year-old male seen and examined with the medicine team in the emergency department at 3:10 PM on December 04, 2017. He presented to the emergency department with complaint of pain deep to the right scapula which radiated through to his chest, stabbing in nature and worse with lifting or activity. He has had this approximately 2 weeks, he had it earlier but it was gone for a couple of weeks and has recurred with vengeance. He also has a cough with bloody sputum, and he is aware that he has a mass in his lung which needs a biopsy. He has a long history of tobacco use, but has ceased smoking several weeks ago. He lives with his son who is 21 and has been for many years. 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 Lately he has been noticing increasing shortness of breath with exertion. Today reports a little sore throat, hoarseness and enlarged" glands in his neck". Also complains of heartburn frequently. He has seen Dr. Mckeon and PET scan was ordered but because of his insurance, as well as the cost of his pain medicine, he was unable to accomplish this.He is admitted today for pain management and to obtain a definitive diagnosis via biopsy of the lung lesion by interventional radiology. Please see history and physical examination for this admission for additional historical details. He is allergic to erythromycin otherwise no known allergies. Results - Labs Result diagrams: 12/04/17 13:50 12/04/17 13:50 Abnormal lab results 12/04/17 12/04/17 12/04/17 Range/Units 13:50 13:50 13:50 RBC 4.29 L (4.50-5.90) mil/mm3 Hgb 11.9 L (13.0-17.0) gm/dL Hct 35.9 L (39.0-51.0) % MPV 6.3 L (7.0-11.0) fL Neut % (Auto) 80.2 H (16.0-70.0) % APTT 23.9 L (24.3-30.1) sec Potassium 3.4 L (3.5-5.1) meq/L Creatinine 1.33 H (0.60-1.30) mg/dL Estimated GFR 55 L (>89) mL/min Troponin I Less than 0.02 L (0.02-0.05) ng/mL Short CBC 12/04/17 Range/Units 13:50 WBC 8.7 (4.0-11.0) th/mm3 Hgb 11.9 L (13.0-17.0) gm/dL Hct 35.9 L (39.0-51.0) % Plt Count 414 (150-450) th/mm3 BMP 12/04/17 13:50 Sodium 138 Potassium 3.4 L Chloride 102 Carbon Dioxide 25.9 BUN 14 Creatinine 1.33 H Calcium 9.0 Cardiac Enzymes 12/04/17 12/04/17 Range/Units 13:50 13:50 Total Creatine Kinase Cancelled 70 Troponin I Cancelled Less than 0.02 L Liver Function 12/04/17 Range/Units 13:50 Total Bilirubin 0.3 (0.2-1.0) mg/dL AST 18 (15-37) U/L ALT 12 (12-78) U/L Alkaline Phosphatase 92 (45-117) U/L Albumin 3.6 (3.4-5.0) g/dL - Imaging Impressions Abdomen/Pelvis CT 12/04/17 13:48 CONCLUSION: 1. Atherosclerosis. 2. Mild diverticulosis. 3. Lung nodules and patchy groundglass infiltrates. Chest CT 12/04/17 13:48 CONCLUSION: 1. 5.8 x 6.3 x 5.4 cm mass in the right upper lobe highly suspicious for malignancy. This lesion is readily amenable to CT-guided biopsy. 2. COPD changes within the pulmonary parenchyma. 3. No significant hilar or mediastinal adenopathy is identified. Physical Exam Vital signs: Vital Signs 12/04/17 13:24 12/04/17 14:27 12/04/17 14:30 Temperature 97.9 F 97.8 F Pulse Rate 99 H 98 H Respiratory Rate 19 24 Blood Pressure 138/97 H 124/88 Pulse Oximetry 98 92 L 92 L Intake & Output 12/03/17 12/04/17 12/04/17 18:59 06:59 18:59 Weight 81.647 kg - Constitutional moderate distress (Back pain radiating to his chest. Also fearful.) - Routine HEENT Exam Head: Present: normocephalic Eye: Present: EOMI, conjunctivae pink. Absent: conjunctival icterus, scleral injection ENT: Present: mucous membranes moist, oropharynx clear. Absent: dentition normal (Many missing teeth) - Routine Neck Exam Present: supple, lymphadenopathy (Palpable submandibular.) - Routine Respiratory Exam Present: decreased breath sounds. Absent: respiratory distress - Routine Cardiovascular Exam Present: RRR, murmur - Routine Abdominal Exam Present: soft. Absent: tenderness (Hypoactive bowel sounds), guarding, rigid - Routine Extremities Exam Absent: cyanosis, clubbing, edema - Routine Skin Exam Present: intact - Routine Neurological Exam Present: alert, oriented X3, hearing grossly intact - Detailed Neurological Exam: Coma Scale Eye Opening: Spontaneous Verbal Response: Oriented Motor Response: Obey commands Tr Coma Scale Total: 15 - Routine Psychiatric Exam Present: normal affect, depressed, anxious (Concerning his diagnosis and prognosis.) Assessment and Plan - Assessment (1) Mass of right lung Code(s): R91.8 - Other nonspecific abnormal finding of lung field Status: Acute (2) History of tobacco abuse Code(s): Z87.891 - Personal history of nicotine dependence Status: Acute - Assessment and Plan Please see orders. Consult for interventional radiology for biopsy. Pain management. Discussed Condition With: Patient was seen, examined and discussed with the medicine team. Discharge Planning: Case management for assistance - Attending Attestation Patient seen, examined and discussed with the medicine team. I agree with the plan.
[2017-12-04 18:03] LABS: Bilirubin,Urine Negative (Negative); Clarity,Urine Clear (Clear); Color,Urine Yellow (Yellw/Straw); Glucose,Urine (UA) Negative (Negative); Hyaline Casts,Urine 1 /lpf (0-3); Leukocyte Esterase,Urine Negative (Negative); Mucus,Urine Few /lpf (Occasional); Nitrite,Urine Negative (Negative); Specific Gravity,Urine 1.017 (1.002-1.035)
[2017-12-04] MEDS ORDERED: Zolpidem Tartrate 5 MG Tablet PO PRN (21:00)
[2017-12-05 06:37] LABS: Baso # (Auto) 0.1 th/mm3 (0.0-0.2); Baso % (Auto) 0.9 % (0.0-2.0); Eos # (Auto) 0.3 th/mm3 (0.0-0.4); Hematocrit 33.7 % (39.0-51.0); Hemoglobin 11.1 gm/dL (13.0-17.0); Lymph # (Auto) 1.4 th/mm3 (1.0-4.8); Lymph % (Auto) 19.4 % (9.0-44.0); Mean Corpuscular HGB Conc 33.1 % (32.0-36.0); Mean Corpuscular Hemoglobin 27.8 pg (27.0-34.0); Mean Corpuscular Volume 83.9 fL (80.0-100.0); Mean Platelet Volume 6.3 fL (7.0-11.0); Mono # (Auto) 0.5 th/mm3 (0.0-0.9); Mono % (Auto) 6.8 % (0.0-8.0); Neut # (Auto) 5.1 th/mm3 (1.8-7.7); Neut % (Auto) 68.9 % (16.0-70.0); Platelet Count 374 th/mm3 (150-450); Red Blood Count 4.01 mil/mm3 (4.50-5.90); Red Cell Distribution Width 13.9 % (11.6-17.2); White Blood Count 7.4 th/mm3 (4.0-11.0)
[2017-12-05 07:09] LABS: Alanine Aminotransferase 12 U/L (12-78); Albumin 3.2 g/dL (3.4-5.0); Anion Gap 8 meq/L (5-15); Aspartate Aminotransferase 16 U/L (15-37); Blood Urea Nitrogen 12 mg/dL (7-18); Calcium 8.8 mg/dL (8.5-10.1); Carbon Dioxide 27.6 meq/L (21.0-32.0); Chloride 104 meq/L (98-107); Glomerular Filtration Rate 58 mL/min (>89); Glucose,Random 83 mg/dL (74-106); Potassium 4.1 meq/L (3.5-5.1); Sodium 140 meq/L (136-145)
[2017-12-05 07:10] LABS: Alkaline Phosphatase 88 U/L (45-117); Total Protein 7.2 g/dL (6.4-8.2)
--- NOTE | 2017-12-05 07:45 | P.CON ---
History of Present Illness Service: Hematology/oncology Consult date: 12/05/17 Requesting Physician: Mackenzie Lancaster Reason for Consult: Right lung mass Primary Care Provider: No Primary Care Physician Chief Complaint: Right upper back pain, difficulty breathing. History of Present Illness: Mr. Gómez is a 57-year-old man who was previously seen by me in mid October 2017 as a new outpatient consultation for further workup and management of a 5 cm right upper lobe lung mass. The mass was identified on CT imaging performed at [facility] on 10/16/2017. The patient was evaluated at the [facility] emergency department for further workup and management of right upper back pain which had been persistent going back to June 2017. The patient reports symptoms of cough and occasional blood-tinged phlegm associated with the right-sided pain. The patient of note has a history of tobaccoism, he reports smoking a pack a day for about 42 years, he quit smoking in June 2017. After being seen by me in the clinic he was advised staging PET/CT imaging as well as CT-guided biopsy of the right upper lobe lung mass. My office staff had informed me that due to the patient's lack of insurance the studies could not be done. In addition, the patient missed an outpatient follow-up with me about 2 weeks ago. He presented to the emergency department on 12/04/2017 with complaints of right- sided upper back pain and progressive difficulty breathing. In the emergency department he underwent CT imaging of the thorax and abdomen, the right upper lobe lung mass abutting the posterior ribs was again demonstrated, multiple subcentimeter pulmonary nodules involving the right lung were also identified. There is no gross evidence of jl involvement or metastatic disease to the abdomen. Additional symptoms include that of occasional headaches, the patient tells me he had a notable and severe headache earlier this week, he took several doses of ibuprofen to help resolve this. The patient has been admitted to this facility for further workup and management and symptom control. A CT-guided biopsy of the right lung mass is pending. Review of Systems Constitutional: Denies anorexia, Denies body ache(s), Denies fatigue, Denies fever(s), Denies lack of energy, Denies weight gain, Denies weight loss Eyes: Denies blurry vision, Denies change in vision Ears, Nose, Mouth, and Throat: Denies abnormal hearing, Denies bleeding gums Cardiovascular: Reports chest pain (Pain involving the right upper chest just around the area of the right shou), Reports shortness of breath, Denies excessive sweating, Denies fainting, Denies fast heart rate, Denies generalized swelling, Denies shortness of breath with activity, Denies shortness of breath when lying down Respiratory: Reports chest congestion, Reports cough, Reports coughing up blood (Occasional phlegm tinged with blood.), Reports wheezing, Denies change in phlegm color Gastrointestinal: Denies abdominal pain, Denies belching, Denies black, tarry stools, Denies coffee ground vomit, Denies constipation, Denies cramping, Denies feeling full early, Denies vomiting, Denies vomiting blood Genitourinary: Denies blood in urine Musculoskeletal: Denies abnormal walking, Denies back pain, Denies joint pain Skin/Breast: Denies acne Neurologic: Reports headache(s), Denies abnormal speech Psychiatric: Reports anxiety, Denies abnormal sleep pattern Endocrine: Denies cold intolerance Hematologic/Lymphatic: Denies easy bleeding PMFSH - History History Provided By: Patient - Medical History Medical History: Medical History (Last Updated 12/05/17 @ 07:39 by Cooper Mckeon MD) Lung mass No significant past surgical history Pulmonary nodules/lesions, multiple Tobacco abuse, in remission - Social History I have reviewed the patient's Social History: Yes - Tobacco History Second Hand Smoke Exposure: No Tobacco Use In Past 30 Days: No Smoking Status: Former smoker Tobacco Type: Cigarettes Packs Per Day: 1 Years Smoked: 42 Smoking End Date: June 2017 - Alcohol History How Often Do You Have a Drink Containing Alcohol: Never - Substance Use History Substance History: No History of Abuse - Travel History Recent Travel Out of the Country Within the Last 8 Weeks: No - Immunization History Tetanus Immunization: >5 Years Hx Influenza Vaccine This Season: No Medications and Allergies Active Medications: Active Medications Acetaminophen (Tylenol) 650 mg PO Q6HR PRN PRN Reason: PAIN SCALE 1 TO 2 Al Hydroxide/Mg Hydroxide (Milk Of Magnesia Liq) 30 ml PO Q12H PRN PRN Reason: Mild Constipation Albuterol (Duoneb Neb (Arina)) 1 ampul NEB Q4HR NEB ARINA Last Admin: 12/05/17 00:29 Dose: Not Given Bisacodyl (Dulcolax Supp) 10 mg RECTAL DAILY PRN PRN Reason: SEVERE CONSITIPATION Lactulose (Lactulose Liq) 30 ml PO DAILY PRN PRN Reason: SEVERE CONSITIPATION Morphine Sulfate (Morphine Inj) 2 mg IV.PUSH Q3H PRN PRN Reason: BREAKTHROUGH PAIN Naloxone HCl (Narcan Inj) 0.4 mg IV.PUSH UNSCH PRN PRN Reason: SEE LABEL COMMENTS Ondansetron HCl (Zofran Inj) 4 mg IV.PUSH Q6H PRN PRN Reason: NAUSEA OR VOMITING Oxycodone HCl (Roxicodone) 5 mg PO Q4H PRN PRN Reason: PAIN SCALE 3 TO 5 Oxycodone HCl (Roxicodone) 10 mg PO Q4H PRN PRN Reason: PAIN SCALE 6 TO 10 Last Admin: 12/05/17 00:28 Dose: 10 mg Sennosides (Senokot) 17.2 mg PO Q12H PRN PRN Reason: Moderate Constipation Zolpidem Tartrate (Ambien) 5 mg PO HS PRN PRN Reason: INSOMNIA Allergies Allergy/AdvReac Type Severity Reaction Status Date / Time erythromycin base Allergy Intermediate Hives Verified 12/04/17 13:48 Home Medications Medication Instructions Recorded Confirmed Type No Known Home Medications 12/04/17 12/04/17 History Physical Exam Vital signs: Vital Signs 12/04/17 13:24 12/04/17 14:27 12/04/17 14:30 Temperature 97.9 F 97.8 F Pulse Rate 99 H 98 H Respiratory Rate 19 24 Blood Pressure 138/97 H 124/88 Pulse Oximetry 98 92 L 92 L 12/04/17 16:25 12/04/17 16:49 12/04/17 20:00 Temperature 97.7 F 97.6 F 97.9 F Pulse Rate 78 80 89 Respiratory Rate 20 21 20 Blood Pressure 130/77 144/84 H 137/82 Pulse Oximetry 99 99 99 12/05/17 00:00 12/05/17 00:19 12/05/17 04:00 Temperature 98.7 F 98 F Pulse Rate 84 94 H 81 Respiratory Rate 18 14 18 Blood Pressure 144/91 H 131/83 Pulse Oximetry 98 98 100 Intake & Output 12/04/17 12/05/17 12/05/17 18:59 06:59 18:59 Output Total 150 / 150 Balance -150 / -150 Weight 81.647 kg 81.647 kg Output: Urine 150 / 150 Other: # Voids 2 Narrative: Middle-aged male, laying in bed, appears to be no acute distress, has a pleasant disposition. He is of medium height moderate build. - Constitutional no acute distress - Routine HEENT Exam Head: Present: normocephalic Eye: Present: EOMI, PERRL ENT: Present: mucous membranes moist - Routine Neck Exam Present: supple, full ROM. Absent: JVD, lymphadenopathy - Routine Respiratory Exam Present: CTA bilaterally, prolonged expiratory phase. Absent: accessory muscle use, rales, respiratory distress, rhonchi, stridor, wheezes, crackles - Routine Cardiovascular Exam Present: RRR, S1, S2. Absent: murmur, gallop, rubs - Routine Abdominal Exam Present: soft. Absent: tenderness, distended, rebound, firm, rigid, mass - Routine Extremities Exam Absent: cyanosis - Routine Skin Exam Present: intact - Routine Neurological Exam Present: alert, oriented X3, CN II-XII intact. Absent: sensory deficit, motor deficit - Detailed Neurological Exam: Coma Scale Eye Opening: Spontaneous - Routine Psychiatric Exam Present: normal affect Assessment and Plan - Plan Ms. Gómez is a 57-year-old man with a greater than 40pack-year history of smoking (he quit smoking in June 2017). He was found to have a 5 cm mass involving the right upper lobe of the lung, the mass abutted the posterior ribs on the right side in late September 2017. Initial scans were performed at [facility] in [place]. He was recommended outpatient follow-up and evaluation and was seen by me in mid October 2017. The patient was advised CT- guided biopsy and an initial staging PET CT scan. Due to issues with his lack of insurance he was unable to undergo outpatient imaging scans or CT-guided biopsy. Over the past week he had progressive worsening of right sided upper posterior chest pain. He also reports persistent cough and difficulty breathing. He came into the emergency department for further workup and management. CT imaging of the thorax performed on 12/04/2017 indicates persistence of a right -sided lung mass involving the right upper lobe posterior segment. Associated with this mass are subcentimeter pulmonary nodules the etiology of which is uncertain. Patient additionally has parenchymal infiltrates involving the right lung in the perihilar area concerning for possible pneumonia. CT imaging of the abdomen was also performed, grossly; no evidence of metastatic disease was identified. He has been admitted to this facility for further workup and management of his right-sided lung mass as well as management of his symptoms of right-sided chest pain. Recommendations: 1. Right upper lobe lung mass: Await CT-guided biopsy with pathologic confirmation of suspected primary lung malignancy. 2. Due to his circumstances with specific regard to his lack of insurance and the delays we have faced with outpatient workup it would be in this patient's best interest to undergo inpatient evaluation with thoracic surgery for potential surgical resection. To facilitate surgery I have also requested staging CT scan of the head given his symptoms of headache to rule out intracranial metastatic disease. Of also requested pulmonary function testing. The oncology service to follow along with you. Discussed Condition With: Emergency department physician. The patient.
[2017-12-05] MEDS ORDERED: fentaNYL Citrate Inj 100 MCG/2 ML Ampul ONE (08:01)
--- NOTE | 2017-12-05 09:06 | P.RAD ---
Post Procedure Progress Note - Pre Procedure Diagnosis (1) Mass of right lung - Post Procedure Diagnosis (1) Mass of right lung - Procedure Information Procedure Date: 12/05/17 Supervising Radiologist: Brennan Aggarwal MD Estimated blood loss (mL): 0 Anesthesia: Local, Conscious Sedation - Plan of Activity Patient to Unit: [facility]OPU Patient Condition: Fair Additional Comments: Right upper lobe biopsy completed 18 ga core sample obtained No pneumothorax on follow up CT post BX cxr pending in 1 hour See PACS Report for procedural detail/treatment.
--- NOTE | 2017-12-05 09:33 | CT ---
EXAM DATE: 12/05/2017 9:16 AM EDT AGE/SEX: 57 years / Male INDICATIONS: Right lung mass. CLINICAL DATA: This is the patient's initial encounter. Patient reports that signs and symptoms have been present for 1 day and indicates a pain score of 0/10. MEDICAL/SURGICAL HISTORY: Chronic obstructive pulmonary disease. None. COMPARISON: [facility] – [place], [place] CHEST W/O CONTRAST, 12/04/2017. . BIOPSY SITE: Right lung MEDICATION(S): 2.5mg midazolam (Versed) IV 125mcg fentanyl (Sublimaze) IV DEVICE(S): 18 gauge BARD biopsy needle One core specimen(s) sent to the laboratory for pathologic evaluation. PROCEDURE: CT guided Right lung biopsy Prior to the procedure informed consent was obtained. Any appropriate prior imaging studies were rev iewed. Using automated exposure control and adjustment of the mA and/or kV according to patient size , radiation dose was kept as low as reasonably achievable to obtain optimal diagnostic quality images . DICOM format image data is available electronically for review and comparison. The site was prepped in a sterile fashion. Full sterile technique was used, including cap, mask, briana rile gloves and gown and a large sterile sheet. Hand hygiene and 2% chlorhexidine and/or betadine/al cohol prep was utilized per protocol for cutaneous antisepsis. The skin and subcutaneous tissues wer e infiltrated with local anesthetic solution. With CT guidance the previously identified target was localized. Biopsy was performed using the presc ribed needle as above. Adequate hemostasis was obtained with compression at the puncture site. Follow-up CT scan reveals no pneumothorax. Conscious sedation was performed with the prescribed dosages and duration as above in the presence of an independent trained radiology nurse to assist in the monitoring of the patient. EKG and oximetry remained stable throughout the procedure. The patient tolerated the procedure well and there were no complications. The patient was sent to Radiology Outpatient Unit in stable condition. CONCLUSION: 1. Uncomplicated CT guided biopsy. Electronically signed by: Brennan Aggarwal MD 12/05/2017 9:32 AM EDT
--- NOTE | 2017-12-05 09:33 | CT ---
EXAM DATE: 12/05/2017 9:21 AM EDT AGE/SEX: 57 years / Male INDICATIONS: Right lung mass. CLINICAL DATA: This is the patient's initial encounter. Patient reports that signs and symptoms have been present for 1 day and indicates a pain score of 5/10. MEDICAL/SURGICAL HISTORY: Chronic obstructive pulmonary disease. None. RADIATION DOSE: 45.45 CTDI (mGy) COMPARISON: No prior exams available for comparison. TECHNIQUE: Axial images of the head were acquired without contrast and after intravenous administrat ion of 90 ml Omnipaque 350 (iohexol) nonionic water-soluble contrast as a single exam dose. Using automated exposure control and adjustment of the mA and/or kV according to patient size, radiation do se was kept as low as reasonably achievable to obtain optimal diagnostic quality images. DICOM forma t image data is available electronically for review and comparison. FINDINGS: There is a tiny focus of enhancement just lateral to the anterior aspect of the left cavernous sinus in the medial left temporal region which could be a normal venous structure, a small aneurysm or a sm all focus of abnormal enhancement as from tumor or other pathologic process. The brain is elsewhere symmetric and benign in appearance. The ventricles are symmetric and normal. T here is no evidence of intracranial hemorrhage or edema. There is nothing to suggest acute infarction . There is mild mucosal sinus disease present. No destructive bony changes. CONCLUSION: Abnormal. Recommend further evaluation with brain MRI and MRA Electronically signed by: Erasto Corral MD 12/05/2017 9:32 AM EDT
--- NOTE | 2017-12-05 10:23 | XR ---
EXAM DATE: 12/05/2017 10:19 AM EDT AGE/SEX: 57 years / Male INDICATIONS: Post lung biopsy CLINICAL DATA: This is the patient's initial encounter. Patient reports that signs and symptoms have been present for 1 day and indicates a pain score of 1/10. MEDICAL/SURGICAL HISTORY: . Chronic obstructive pulmonary disease. None. [place] [facility] [place]/2017. . FINDINGS: Is again noted. There is no evidence of pneumothorax post biopsy. Emphysematous changes are present. Mild suprahilar interstitial infiltrate on the right. No evidence of effusion. Cardiac contours are s table. CONCLUSION: No pneumothorax Electronically signed by: Erasto Corral MD 12/05/2017 10:22 AM EDT
--- NOTE | 2017-12-05 12:41 | P.PNFP ---
Subjective Interval history: Patient seen and examined following IR biopsy of lesion this morning. Patient is currently groggy from the sedation he was given for the procedure. However he states no problems overnight. No acute events reported overnight. No chest pain/shortness of breath/dizziness. <Amanda Garcia - 12/05/17 12:40> Results - Labs Result diagrams: 12/05/17 04:52 12/05/17 04:52 <Mackenzie Lancaster - 12/05/17 12:56> Abnormal lab results 12/04/17 12/04/17 12/04/17 Range/Units 13:50 13:50 13:50 RBC 4.29 L (4.50-5.90) mil/mm3 Hgb 11.9 L (13.0-17.0) gm/dL Hct 35.9 L (39.0-51.0) % MPV 6.3 L (7.0-11.0) fL Neut % (Auto) 80.2 H (16.0-70.0) % APTT 23.9 L (24.3-30.1) sec Potassium 3.4 L (3.5-5.1) meq/L Creatinine 1.33 H (0.60-1.30) mg/dL Estimated GFR 55 L (>89) mL/min Troponin I Less than 0.02 L (0.02-0.05) ng/mL Albumin (3.4-5.0) g/dL Urine Mucus (Occasional) /lpf 12/04/17 12/04/17 12/05/17 Range/Units 17:24 21:19 04:52 RBC 4.01 L (4.50-5.90) mil/mm3 Hgb 11.1 L (13.0-17.0) gm/dL Hct 33.7 L (39.0-51.0) % MPV 6.3 L (7.0-11.0) fL Neut % (Auto) (16.0-70.0) % APTT (24.3-30.1) sec Potassium (3.5-5.1) meq/L Creatinine (0.60-1.30) mg/dL Estimated GFR (>89) mL/min Troponin I Less than 0.02 L (0.02-0.05) ng/mL Albumin (3.4-5.0) g/dL Urine Mucus Few H (Occasional) /lpf 12/05/17 Range/Units 04:52 RBC (4.50-5.90) mil/mm3 Hgb (13.0-17.0) gm/dL Hct (39.0-51.0) % MPV (7.0-11.0) fL Neut % (Auto) (16.0-70.0) % APTT (24.3-30.1) sec Potassium (3.5-5.1) meq/L Creatinine (0.60-1.30) mg/dL Estimated GFR 58 L (>89) mL/min Troponin I (0.02-0.05) ng/mL Albumin 3.2 L (3.4-5.0) g/dL Urine Mucus (Occasional) /lpf Short CBC 12/04/17 12/05/17 Range/Units 13:50 04:52 WBC 8.7 7.4 (4.0-11.0) th/mm3 Hgb 11.9 L 11.1 L (13.0-17.0) gm/dL Hct 35.9 L 33.7 L (39.0-51.0) % Plt Count 414 374 (150-450) th/mm3 BMP 12/04/17 12/05/17 13:50 04:52 Sodium 138 140 Potassium 3.4 L 4.1 Chloride 102 104 Carbon Dioxide 25.9 27.6 BUN 14 12 Creatinine 1.33 H 1.28 Calcium 9.0 8.8 Cardiac Enzymes 12/04/17 12/04/17 12/04/17 Range/Units 13:50 13:50 21:19 Total Creatine Kinase Cancelled 70 Troponin I Cancelled Less than 0.02 L Less than 0.02 L Liver Function 12/04/17 12/05/17 Range/Units 13:50 04:52 Total Bilirubin 0.3 0.3 (0.2-1.0) mg/dL AST 18 16 (15-37) U/L ALT 12 12 (12-78) U/L Alkaline Phosphatase 92 88 (45-117) U/L Albumin 3.6 3.2 L (3.4-5.0) g/dL Urine 12/04/17 Range/Units 17:24 Urine Color Yellow (Yellw/Straw) Urine Clarity Clear (Clear) Urine pH 5.0 (5.0-8.5) Ur Specific [place] 1.017 (1.002-1.035) Urine Protein Negative (Neg-Trace) mg/dL Urine Glucose (UA) Negative (Negative) mg/dL <Mackenzie Lancaster - 12/05/17 12:56> Abnormal lab results 12/04/17 12/04/17 12/04/17 Range/Units 13:50 13:50 13:50 RBC 4.29 L (4.50-5.90) mil/mm3 Hgb 11.9 L (13.0-17.0) gm/dL Hct 35.9 L (39.0-51.0) % MPV 6.3 L (7.0-11.0) fL Neut % (Auto) 80.2 H (16.0-70.0) % APTT 23.9 L (24.3-30.1) sec Potassium 3.4 L (3.5-5.1) meq/L Creatinine 1.33 H (0.60-1.30) mg/dL Estimated GFR 55 L (>89) mL/min Troponin I Less than 0.02 L (0.02-0.05) ng/mL Albumin (3.4-5.0) g/dL Urine Mucus (Occasional) /lpf 12/04/17 12/04/17 12/05/17 Range/Units 17:24 21:19 04:52 RBC 4.01 L (4.50-5.90) mil/mm3 Hgb 11.1 L (13.0-17.0) gm/dL Hct 33.7 L (39.0-51.0) % MPV 6.3 L (7.0-11.0) fL Neut % (Auto) (16.0-70.0) % APTT (24.3-30.1) sec Potassium (3.5-5.1) meq/L Creatinine (0.60-1.30) mg/dL Estimated GFR (>89) mL/min Troponin I Less than 0.02 L (0.02-0.05) ng/mL Albumin (3.4-5.0) g/dL Urine Mucus Few H (Occasional) /lpf 12/05/17 Range/Units 04:52 RBC (4.50-5.90) mil/mm3 Hgb (13.0-17.0) gm/dL Hct (39.0-51.0) % MPV (7.0-11.0) fL Neut % (Auto) (16.0-70.0) % APTT (24.3-30.1) sec Potassium (3.5-5.1) meq/L Creatinine (0.60-1.30) mg/dL Estimated GFR 58 L (>89) mL/min Troponin I (0.02-0.05) ng/mL Albumin 3.2 L (3.4-5.0) g/dL Urine Mucus (Occasional) /lpf Short CBC 12/04/17 12/05/17 Range/Units 13:50 04:52 WBC 8.7 7.4 (4.0-11.0) th/mm3 Hgb 11.9 L 11.1 L (13.0-17.0) gm/dL Hct 35.9 L 33.7 L (39.0-51.0) % Plt Count 414 374 (150-450) th/mm3 BMP 12/04/17 12/05/17 13:50 04:52 Sodium 138 140 Potassium 3.4 L 4.1 Chloride 102 104 Carbon Dioxide 25.9 27.6 BUN 14 12 Creatinine 1.33 H 1.28 Calcium 9.0 8.8 Cardiac Enzymes 12/04/17 12/04/17 12/04/17 Range/Units 13:50 13:50 21:19 Total Creatine Kinase Cancelled 70 Troponin I Cancelled Less than 0.02 L Less than 0.02 L Liver Function 12/04/17 12/05/17 Range/Units 13:50 04:52 Total Bilirubin 0.3 0.3 (0.2-1.0) mg/dL AST 18 16 (15-37) U/L ALT 12 12 (12-78) U/L Alkaline Phosphatase 92 88 (45-117) U/L Albumin 3.6 3.2 L (3.4-5.0) g/dL Urine 12/04/17 Range/Units 17:24 Urine Color Yellow (Yellw/Straw) Urine Clarity Clear (Clear) Urine pH 5.0 (5.0-8.5) Ur Specific [place] 1.017 (1.002-1.035) Urine Protein Negative (Neg-Trace) mg/dL Urine Glucose (UA) Negative (Negative) mg/dL <Amanda Garcia - 12/05/17 12:40> - Imaging Impressions Abdomen/Pelvis CT 12/04/17 13:48 CONCLUSION: 1. Atherosclerosis. 2. Mild diverticulosis. 3. Lung nodules and patchy groundglass infiltrates. Chest CT 12/04/17 13:48 CONCLUSION: 1. 5.8 x 6.3 x 5.4 cm mass in the right upper lobe highly suspicious for malignancy. This lesion is readily amenable to CT-guided biopsy. 2. COPD changes within the pulmonary parenchyma. 3. No significant hilar or mediastinal adenopathy is identified. Head CT 12/05/17 00:00 CONCLUSION: Abnormal. Recommend further evaluation with brain MRI and MRA Lung Biopsy CT 12/05/17 00:00 CONCLUSION: 1. Uncomplicated CT guided biopsy. Chest X-Ray 12/05/17 09:03 CONCLUSION: No pneumothorax <Mackenzie Lancaster - 12/05/17 12:56> Impressions Abdomen/Pelvis CT 12/04/17 13:48 CONCLUSION: 1. Atherosclerosis. 2. Mild diverticulosis. 3. Lung nodules and patchy groundglass infiltrates. Chest CT 12/04/17 13:48 CONCLUSION: 1. 5.8 x 6.3 x 5.4 cm mass in the right upper lobe highly suspicious for malignancy. This lesion is readily amenable to CT-guided biopsy. 2. COPD changes within the pulmonary parenchyma. 3. No significant hilar or mediastinal adenopathy is identified. Head CT 12/05/17 00:00 CONCLUSION: Abnormal. Recommend further evaluation with brain MRI and MRA Lung Biopsy CT 12/05/17 00:00 CONCLUSION: 1. Uncomplicated CT guided biopsy. Chest X-Ray 12/05/17 09:03 CONCLUSION: No pneumothorax <Amanda Garcia - 12/05/17 12:40> Physical Exam Vital signs: Vital Signs 12/04/17 13:24 12/04/17 14:27 12/04/17 14:30 Temperature 97.9 F 97.8 F Pulse Rate 99 H 98 H Respiratory Rate 19 24 Blood Pressure 138/97 H 124/88 Pulse Oximetry 98 92 L 92 L 12/04/17 16:25 12/04/17 16:49 12/04/17 20:00 Temperature 97.7 F 97.6 F 97.9 F Pulse Rate 78 80 89 Respiratory Rate 20 21 20 Blood Pressure 130/77 144/84 H 137/82 Pulse Oximetry 99 99 99 12/05/17 00:00 12/05/17 00:19 12/05/17 04:00 Temperature 98.7 F 98 F Pulse Rate 84 94 H 81 Respiratory Rate 18 14 18 Blood Pressure 144/91 H 131/83 Pulse Oximetry 98 98 100 12/05/17 07:57 12/05/17 08:14 12/05/17 09:15 Temperature 97.7 F Pulse Rate 80 85 82 Respiratory Rate 14 18 18 Blood Pressure 133/89 119/84 Pulse Oximetry 97 92 L 12/05/17 09:30 12/05/17 10:00 12/05/17 10:30 Temperature Pulse Rate 83 84 82 Respiratory Rate 18 18 18 Blood Pressure 127/76 118/77 116/86 Pulse Oximetry 96 95 95 12/05/17 11:00 12/05/17 12:00 Temperature 98.1 F Pulse Rate 84 82 Respiratory Rate 18 17 Blood Pressure 116/83 124/80 Pulse Oximetry 95 95 Intake & Output 12/04/17 12/05/17 12/05/17 18:59 06:59 18:59 Output Total 150 / 150 Balance -150 / -150 Weight 81.647 kg 81.647 kg Output: Urine 150 / 150 Other: # Voids 2 <Mackenzie Lancaster - 12/05/17 12:56> Vital Signs 12/04/17 13:24 12/04/17 14:27 12/04/17 14:30 Temperature 97.9 F 97.8 F Pulse Rate 99 H 98 H Respiratory Rate 19 24 Blood Pressure 138/97 H 124/88 Pulse Oximetry 98 92 L 92 L 12/04/17 16:25 12/04/17 16:49 12/04/17 20:00 Temperature 97.7 F 97.6 F 97.9 F Pulse Rate 78 80 89 Respiratory Rate 20 21 20 Blood Pressure 130/77 144/84 H 137/82 Pulse Oximetry 99 99 99 12/05/17 00:00 12/05/17 00:19 12/05/17 04:00 Temperature 98.7 F 98 F Pulse Rate 84 94 H 81 Respiratory Rate 18 14 18 Blood Pressure 144/91 H 131/83 Pulse Oximetry 98 98 100 12/05/17 07:57 12/05/17 08:14 12/05/17 09:15 Temperature 97.7 F Pulse Rate 80 85 82 Respiratory Rate 14 18 18 Blood Pressure 133/89 119/84 Pulse Oximetry 97 92 L 12/05/17 09:30 12/05/17 10:00 12/05/17 10:30 Temperature Pulse Rate 83 84 82 Respiratory Rate 18 18 18 Blood Pressure 127/76 118/77 116/86 Pulse Oximetry 96 95 95 12/05/17 11:00 Temperature Pulse Rate 84 Respiratory Rate 18 Blood Pressure 116/83 Pulse Oximetry 95 Intake & Output 12/04/17 12/05/17 12/05/17 18:59 06:59 18:59 Output Total 150 / 150 Balance -150 / -150 Weight 81.647 kg 81.647 kg Output: Urine 150 / 150 Other: # Voids 2 <Amanda Garcia - 12/05/17 12:40> Narrative: General: Well-nourished, well-developed, in no acute distress Skin: Intact, no rash present HEENT: Neck supple, no nodules appreciated Cardio: Regular rate and rhythm, no murmurs Respiratory: Clear to auscultation bilaterally, slight anterior wheezing, rales , crackles. Abdominal: Normal bowel sounds, soft, nondistended, no tenderness <Amanda Garcia - 12/05/17 12:40> Assessment and Plan - Assessment (1) Mass of right lung Code(s): R91.8 - Other nonspecific abnormal finding of lung field Status: Acute (2) Back pain Code(s): M54.9 - Dorsalgia, unspecified Status: Acute (3) COPD (chronic obstructive pulmonary disease) Code(s): J44.9 - Chronic obstructive pulmonary disease, unspecified Status: Acute (4) Elevated serum creatinine Code(s): R79.89 - Other specified abnormal findings of blood chemistry Status : Acute (5) History of tobacco abuse Code(s): Z87.891 - Personal history of nicotine dependence Status: Acute (6) DVT prophylaxis Status: Acute (7) Nutrition, metabolism, and development symptoms Code(s): R63.8 - Other symptoms and signs concerning food and fluid intake Status: Acute <Mackenzie Lancaster - 12/05/17 12:56> (1) Mass of right lung Code(s): R91.8 - Other nonspecific abnormal finding of lung field Status: Acute Plan: 57 yo male with a known 6cm mass in the right lung. Patient follows with Dr. Mckeon. -Consult to Dr. Mckeon, oncology; follow-up pathology, inpatient evaluation with thoracic surgery for potential surgical resection, staging CT scan of head, PFTs -Status post IR for CT guided biopsy * SCDs only for VTE prophylaxis in anticipation of possible cardiothoracic surgery -Consult CM to aid in outpatient arrangements of medications, interventions, appointments (2) Back pain Code(s): M54.9 - Dorsalgia, unspecified Status: Acute Plan: Right sided upper back pain likely due to lung mass but could also be musculoskeletal due to his active job. - Pain scale with acetaminophen, oxycodone and morphine (3) COPD (chronic obstructive pulmonary disease) Code(s): J44.9 - Chronic obstructive pulmonary disease, unspecified Status: Acute Plan: Patient with a 42 year pack smoking history. - Duoneb treatments Q4hr - Will not start IV fluids due to patient's respiratory status. PO intake at this time. (4) Elevated serum creatinine Code(s): R79.89 - Other specified abnormal findings of blood chemistry Status : Acute Plan: Patient had elevated creatinine at 1.33. He had a creatinine at 1.32 at his last visit in 11/05/17. This is likely CKD. - Monitor creatinine (5) History of tobacco abuse Code(s): Z87.891 - Personal history of nicotine dependence Status: Acute Plan: Patient with 42 pack year smoking history. He quit about 5 months ago. (6) DVT prophylaxis Status: Acute Plan: -bilateral SCDs -Defer chemical prophylaxis due to his thoracic surgery evaluation (7) Nutrition, metabolism, and development symptoms Code(s): R63.8 - Other symptoms and signs concerning food and fluid intake Status: Acute Plan: Fluids: P.o. fluid Electrolytes: Follow-up BMP and replete as needed Nutrition: Regular diet <Amanda Garcia - 12/05/17 12:35> - Assessment and Plan Discharge Planning: Pending evaluation for cardiothoracic surgery, screening CT scan for metastases , oncology clearance for discharge <Amanda Garcia - 12/05/17 12:40> - Attending Attestation Patient seen in recovery after CT-guided biopsy, he was examined and discussed with the entire medicine team. I agree with the findings and the plan as documented. <Mackenzie Lancaster - 12/05/17 12:56>
--- NOTE | 2017-12-05 15:06 | MB ---
cc: Roselia Cuellar DATE: 12/05/2017 HISTORY OF PRESENT ILLNESS: A 57-year-old male who was seen recently by Dr. Mckeon back in September, [facility] for management of right upper back pain that started occurring back in June; also reported symptoms of cough and occasional blood-tinged sputum and right-sided chest discomfort. They did CT imaging, which showed a 5 cm right upper lobe lung mass. He was evaluated by Dr. Mckeon in the clinic and was advised for staging PET-CT imaging as well as CT-guided biopsy of the right upper lobe mass. Apparently due to his insurance, he was unable to followup with followup appointments and to get the instructed imaging. He presented to [facility] on 12/04/2017 with complaint of right upper back pain, shortness of breath. Also some sputum which had some blood in it; he said about the size of a dime at times. He underwent full imaging on 12/04/2017 which is included an abdomen and pelvis CT, which showed some mild diverticulosis, lung nodules, patchy ground glass infiltrates. The CT chest showed a 5 x 8 x 6 x 3.3 x 5.4 cm mass right upper lobe, highly suspicious for malignancy. No mediastinal or hilar adenopathy. The patient also had a head CT with some tiny focus of enhancement lateral to the anterior aspect of the left cavernous sinus in the medial left temporal region. The patient underwent CT-guided biopsy today. We were consulted to evaluate for this right upper lung mass and the patient's inability to receive outpatient staging PET-CT imaging and evaluation for possible surgery. PAST MEDICAL HISTORY: Includes recent diagnosis of right upper lobe lung mass. PAST SURGICAL HISTORY: None. ALLERGIES: ERYTHROMYCIN. MEDICATIONS: No home medications. FAMILY HISTORY: Mother at 63 with lymphoma. Father with a brain cancer at age 43. He has 2 half brothers and a sister. SOCIAL HISTORY: He has been smoking for approximately 42 years, 1-1/2 packs. He says he quit in June 2017. No alcohol. He is ; however, , has 1 child. He works for a [employer]. REVIEW OF SYSTEMS: GENERAL: No night sweats, fever, heat and cold intolerance SKIN: No psoriasis, itching or hives. HEENT: No blurred vision, hearing loss. RESPIRATORY: Positive for cough, shortness of breath. Some occasional blood-tinged sputum. CARDIOVASCULAR: Right-sided upper chest wall discomfort. No lower extremity edema. GASTROINTESTINAL: No diarrhea or vomiting. GENITOURINARY: No burning, frequency, urgency. CENTRAL NERVOUS SYSTEM: No history of seizure or TIAs. He has had some headaches recently. ENDOCRINOLOGY: No cold intolerance. PHYSICAL EXAMINATION: VITAL SIGNS: Blood pressure 124/80, heart rate of 80, temperature max 98.1, O2 saturation 95 on room air. GENERAL: Patient is awake, alert; no acute distress. HEENT: Head is normocephalic, atraumatic. Pupils equal and reactive. Oral mucosa pink, moist. NECK: Supple. No JVD. HEART: Sounds S1, S2. Regular rate and rhythm. No audible rubs, murmurs, or gallops. LUNGS: Clear to auscultation. No wheezes, rales or rhonchi. ABDOMEN: Soft, nontender. No masses or organomegaly. EXTREMITIES: No cyanosis, clubbing, or edema. LABORATORY DATA: Shows hemoglobin of 11, hematocrit of 33, white cell count is 7.4, platelet count of 374. Sodium 140, potassium 4.1, BUN of 12, creatinine 1.28, INR 1.0. Urinalysis is unremarkable. IMPRESSION: A 57-year-old male with longstanding history of tobacco abuse. Recent diagnosis with a CT scan of a 5 cm mass involving the right upper lobe of the lung. Patient has undergone CT-guided biopsy today. At this point, await the pathology report. Dr. Burrows will speak directly with Dr. Mckeon for timing for possible thorascopic surgery to include possible resection, understanding the patient has lack of insurance. Further plan per Dr. Coty Burrows. KYLAH Flores MD JRT/penny , 02:35 PM , 02:48 PM
--- NOTE | 2017-12-05 18:50 | ECG ---
Date Performed: 12/05/2017 Time Performed: 00:34:21 PTAGE: 57 years EKG: Sinus rhythm RIGHT BUNDLE BRANCH BLOCK ABNORMAL ECG NO PREVIOUS TRACING DOCTOR: Sahil Beckham Interpretating Date/Time 12/05/2017 18:47:20
--- NOTE | 2017-12-05 18:56 | ECG ---
Date Performed: 12/04/2017 Time Performed: 19:28:25 PTAGE: 57 years EKG: Sinus rhythm INCOMPLETE RIGHT BUNDLE BRANCH BLOCK BORDERLINE ECG NO PREVIOUS TRACING DOCTOR: Sahil Beckham Interpretating Date/Time 12/05/2017 18:51:37
[2017-12-06 08:04] LABS: Baso % (Auto) 0.6 % (0.0-2.0); Eos # (Auto) 0.3 th/mm3 (0.0-0.4); Eos % (Auto) 3.9 % (0.0-4.0); Hematocrit 30.5 % (39.0-51.0); Hemoglobin 10.4 gm/dL (13.0-17.0); Lymph % (Auto) 12.4 % (9.0-44.0); Mean Corpuscular HGB Conc 34.1 % (32.0-36.0); Mean Corpuscular Hemoglobin 28.1 pg (27.0-34.0); Mean Corpuscular Volume 82.4 fL (80.0-100.0); Mean Platelet Volume 6.2 fL (7.0-11.0); Mono # (Auto) 0.7 th/mm3 (0.0-0.9); Mono % (Auto) 8.5 % (0.0-8.0); Neut # (Auto) 5.8 th/mm3 (1.8-7.7); Neut % (Auto) 74.6 % (16.0-70.0); Platelet Count 336 th/mm3 (150-450); Red Cell Distribution Width 14.1 % (11.6-17.2); White Blood Count 7.8 th/mm3 (4.0-11.0)
[2017-12-06 08:31] LABS: Albumin 2.9 g/dL (3.4-5.0); Anion Gap 8 meq/L (5-15); Aspartate Aminotransferase 16 U/L (15-37); Blood Urea Nitrogen 11 mg/dL (7-18); Calcium 8.6 mg/dL (8.5-10.1); Carbon Dioxide 26.9 meq/L (21.0-32.0); Chloride 102 meq/L (98-107); Glomerular Filtration Rate 57 mL/min (>89); Glucose,Random 109 mg/dL (74-106); Potassium 3.8 meq/L (3.5-5.1); Sodium 137 meq/L (136-145)
[2017-12-06 08:34] LABS: Alanine Aminotransferase 10 U/L (12-78); Alkaline Phosphatase 86 U/L (45-117); Total Protein 6.4 g/dL (6.4-8.2)
--- NOTE | 2017-12-06 10:41 | P.PNFP ---
Subjective Interval history: Patient seen and examined at bedside today. Patient states he feels better today. His shoulder pain has been controlled with the pain medications during his hospitalization. He is not as short of breath. He had a bowel movement this morning. Denies chest pain. Of note, pathologist was contacted this morning who said that the biopsy of the lung completed yesterday does show a high-grade malignancy. This was communicated to the patient, and I have attempted to contact Dr. Mckeon. Results - Labs Result diagrams: 12/06/17 07:17 12/06/17 07:17 Abnormal lab results 12/06/17 12/06/17 Range/Units 07:17 07:17 RBC 3.70 L (4.50-5.90) mil/mm3 Hgb 10.4 L (13.0-17.0) gm/dL Hct 30.5 L (39.0-51.0) % MPV 6.2 L (7.0-11.0) fL Neut % (Auto) 74.6 H (16.0-70.0) % [place] % (Auto) 8.5 H (0.0-8.0) % Estimated GFR 57 L (>89) mL/min Random Glucose 109 H (74-106) mg/dL ALT 10 L (12-78) U/L Albumin 2.9 L (3.4-5.0) g/dL Short CBC 12/06/17 Range/Units 07:17 WBC 7.8 (4.0-11.0) th/mm3 Hgb 10.4 L (13.0-17.0) gm/dL Hct 30.5 L (39.0-51.0) % Plt Count 336 (150-450) th/mm3 [facility] 12/06/17 07:17 Sodium 137 Potassium 3.8 Chloride 102 Carbon Dioxide 26.9 BUN 11 Creatinine 1.29 Calcium 8.6 Liver Function 12/06/17 Range/Units 07:17 Total Bilirubin 0.2 (0.2-1.0) mg/dL AST 16 (15-37) U/L ALT 10 L (12-78) U/L Alkaline Phosphatase 86 (45-117) U/L Albumin 2.9 L (3.4-5.0) g/dL Physical Exam Vital signs: Vital Signs 12/05/17 11:00 12/05/17 12:00 12/05/17 12:18 Temperature 98.1 F 97.7 F Pulse Rate 84 82 89 Respiratory Rate 18 17 18 Blood Pressure 116/83 124/80 133/80 Pulse Oximetry 95 95 98 12/05/17 15:19 12/05/17 19:54 12/05/17 21:28 Temperature 98.6 F Pulse Rate 82 94 H 89 Respiratory Rate 16 16 18 Blood Pressure 128/78 Pulse Oximetry 96 96 12/06/17 00:20 12/06/17 01:04 12/06/17 03:48 Temperature 97.9 F Pulse Rate 92 H 94 H 85 Respiratory Rate 18 16 16 Blood Pressure 121/66 Pulse Oximetry 97 96 12/06/17 05:05 12/06/17 07:00 12/06/17 09:05 Temperature 98.3 F 98.0 F Pulse Rate 88 91 H Respiratory Rate 18 12 18 Blood Pressure 121/58 L 115/69 Pulse Oximetry 95 97 Intake & Output 12/05/17 12/06/17 12/06/17 18:59 06:59 18:59 Intake Total 240 / 240 240 / 240 Balance 240 / 240 240 / 240 Intake: Oral 240 / 240 240 / 240 Other: # Voids 4 2 # Bowel Movements 0 - Constitutional no acute distress - Routine HEENT Exam Head: Present: normocephalic - Routine Respiratory Exam Present: decreased breath sounds. Absent: accessory muscle use Comments: bilateral lung bases - Routine Cardiovascular Exam Present: RRR, S1, S2 - Routine Abdominal Exam Present: soft, normoactive bowel sounds. Absent: tenderness, distended - Routine Extremities Exam Absent: edema, calf tenderness - Routine Skin Exam Present: intact - Routine Neurological Exam Present: alert, oriented X3 Assessment and Plan - Assessment (1) Mass of right lung Code(s): R91.8 - Other nonspecific abnormal finding of lung field Status: Acute Plan: 57 yo male with a known 6cm mass in the right lung. Patient follows with Dr. Mckeon. -Consult to Dr. Mckeon, oncology -Follow-up pathology-pathologist was contacted 12/06 who said that the biopsy of the lung completed yesterday does show high-grade malignancy. This was communicated to the patient and I have attempted to contact Dr. Mckeon. -Inpatient evaluation with thoracic surgery for potential surgical resection -Staging CT scan of head- radiologist recommended brain MRI or MRA -PFTs -Status post IR for CT guided biopsy * SCDs only for VTE prophylaxis in anticipation of possible cardiothoracic surgery -Consult CM to aid in outpatient arrangements of medications, interventions, appointments (2) Back pain Code(s): M54.9 - Dorsalgia, unspecified Status: Acute Plan: Right sided upper back pain likely due to lung mass but could also be musculoskeletal due to his active job. - Pain scale with acetaminophen, oxycodone and morphine (3) COPD (chronic obstructive pulmonary disease) Code(s): J44.9 - Chronic obstructive pulmonary disease, unspecified Status: Acute Plan: Patient with a 42 year pack smoking history. - Duoneb treatments Q4hr - Will not start IV fluids due to patient's respiratory status. PO intake at this time. (4) Elevated serum creatinine Code(s): R79.89 - Other specified abnormal findings of blood chemistry Status : Acute Plan: Patient had elevated creatinine at 1.33. He had a creatinine at 1.32 at his last visit in 11/05/17. This is likely CKD. - Monitor creatinine (5) History of tobacco abuse Code(s): Z87.891 - Personal history of nicotine dependence Status: Acute Plan: Patient with 42 pack year smoking history. He quit about 5 months ago. (6) DVT prophylaxis Status: Acute Plan: -bilateral SCDs -Defer chemical prophylaxis due to his thoracic surgery evaluation (7) Nutrition, metabolism, and development symptoms Code(s): R63.8 - Other symptoms and signs concerning food and fluid intake Status: Acute Plan: Fluids: P.o. fluid Electrolytes: Follow-up BMP and replete as needed Nutrition: Regular diet - Assessment and Plan Contacted Dr. Mckeon to communicate pathology report and further plans of care and wether they can be completed as outpatient or inpatient. Waiting for a call back as he is in clinic. CM consulted to aid in patient signing up for medicaid.
[2017-12-06] MEDS ORDERED: Gadobutrol PF 2 MMOL/2 ML Vial (for RAD) IV.SIG ONE (13:13)
--- NOTE | 2017-12-06 13:44 | MR ---
EXAM DATE: 12/06/2017 1:28 PM EDT AGE/SEX: 57 years / Male INDICATIONS: . Lung mass. CLINICAL DATA: This is the patient's subsequent encounter. Patient reports that signs and symptoms h ave been present for 2 days and indicates a pain score of 0/10. MEDICAL/SURGICAL HISTORY: None. None. COMPARISON: [facility] [place], MRA HEAD W/O CONTRAST, 12/06/2017. . TECHNIQUE: Multiplanar, multisequence examination of the brain was performed without and with 8 ml Ga davist (gadobutrol) contrast as a single exam dose. FINDINGS: Cerebrum: The ventricles are normal for age. No evidence of midline shift, mass lesion, hemorrhage or acute infarction. No extraaxial fluid collections are seen. The pituitary gland and suprasellar cistern are normal in configuration. White Matter: No significant signal abnormalities are seen in the white matter. Posterior Fossa: The cerebellum and brainstem are intact. The 4th ventricle is midline. The cerebel lopontine angle is unremarkable. The cerebellar tonsils are normal in position. Diffusion Imaging: No focal areas of restricted diffusion are seen. No evidence of acute infarction . Extracranial: The visualized portions of the orbits and paranasal sinuses are unremarkable. Post Contrast: No abnormal areas of parenchymal or dural enhancement. No evidence of blood-brain ba rrier breakdown. CONCLUSION: 1. Negative MR Brain with and without contrast. Electronically signed by: Brennan Aggarwal MD 12/06/2017 1:43 PM EDT
--- NOTE | 2017-12-06 13:45 | MR ---
EXAM DATE: 12/06/2017 1:29 PM EDT AGE/SEX: 57 years / Male INDICATIONS: . Lung mass. CLINICAL DATA: This is the patient's subsequent encounter. Patient reports that signs and symptoms h ave been present for 2 days and indicates a pain score of 0/10. MEDICAL/SURGICAL HISTORY: None. None. [place] [facility] [place]. . TECHNIQUE: 3D [id number] MRA was performed. Source images, multiplanar STS MIP, and 3D volum e MIP reconstructions were reviewed. FINDINGS: There is excellent visualization of the major intracranial arteries out to the second-order branch ve ssels. origin of the right posterior cerebral arteries noted. There is no evidence for aneurysm, vessel truncation or stenosis, and no evidence for vascular malfo rmation. CONCLUSION: 1. Normal variant with origin of the right posterior cerebral artery. 2. Otherwise normal MRA without evidence of steno-occlusive disease, aneurysm, vascular malformation or vasculopathy. Electronically signed by: Edin Kennedy MD 12/06/2017 1:43 PM EDT
[2017-12-07 05:36] LABS: Baso # (Auto) 0.1 th/mm3 (0.0-0.2); Baso % (Auto) 0.8 % (0.0-2.0); Eos # (Auto) 0.3 th/mm3 (0.0-0.4); Eos % (Auto) 4.7 % (0.0-4.0); Hematocrit 31.1 % (39.0-51.0); Hemoglobin 10.4 gm/dL (13.0-17.0); Lymph # (Auto) 1.2 th/mm3 (1.0-4.8); Lymph % (Auto) 16.3 % (9.0-44.0); Mean Corpuscular HGB Conc 33.3 % (32.0-36.0); Mean Corpuscular Hemoglobin 27.7 pg (27.0-34.0); Mean Corpuscular Volume 83.3 fL (80.0-100.0); Mean Platelet Volume 6.2 fL (7.0-11.0); Mono # (Auto) 0.7 th/mm3 (0.0-0.9); Neut # (Auto) 5.2 th/mm3 (1.8-7.7); Neut % (Auto) 69.2 % (16.0-70.0); Platelet Count 319 th/mm3 (150-450); Red Blood Count 3.73 mil/mm3 (4.50-5.90); White Blood Count 7.5 th/mm3 (4.0-11.0)
[2017-12-07 06:10] LABS: Alanine Aminotransferase 10 U/L (12-78); Anion Gap 8 meq/L (5-15); Aspartate Aminotransferase 13 U/L (15-37); Blood Urea Nitrogen 14 mg/dL (7-18); Calcium 8.1 mg/dL (8.5-10.1); Carbon Dioxide 26.8 meq/L (21.0-32.0); Chloride 104 meq/L (98-107); Glomerular Filtration Rate 55 mL/min (>89); Glucose,Random 99 mg/dL (74-106); Sodium 139 meq/L (136-145)
[2017-12-07 06:12] LABS: Alkaline Phosphatase 87 U/L (45-117); Total Protein 6.5 g/dL (6.4-8.2)
--- NOTE | 2017-12-07 08:04 | P.PNFP ---
Subjective Interval history: Patient seen and examined at bedside today. He states that he is doing well this morning. He had just completed a breathing treatment. He does have shortness of breath, but no different than his baseline. He reports good appetite. He denies chest pain, abdominal pain, constipation. He is very appreciative of the care he has received thus far. <YaakovMichelle A - 12/07/17 08:04> Results - Labs Result diagrams: 12/07/17 05:13 12/07/17 05:13 <Mackenzie Lancaster - 12/07/17 10:33> Abnormal lab results 12/07/17 12/07/17 Range/Units 05:13 05:13 RBC 3.73 L (4.50-5.90) mil/mm3 Hgb 10.4 L (13.0-17.0) gm/dL Hct 31.1 L (39.0-51.0) % MPV 6.2 L (7.0-11.0) fL [place] % (Auto) 9.0 H (0.0-8.0) % Eos % (Auto) 4.7 H (0.0-4.0) % Creatinine 1.34 H (0.60-1.30) mg/dL Estimated GFR 55 L (>89) mL/min Calcium 8.1 L (8.5-10.1) mg/dL AST 13 L (15-37) U/L ALT 10 L (12-78) U/L Albumin 3.0 L (3.4-5.0) g/dL Short CBC 12/07/17 Range/Units 05:13 WBC 7.5 (4.0-11.0) th/mm3 Hgb 10.4 L (13.0-17.0) gm/dL Hct 31.1 L (39.0-51.0) % Plt Count 319 (150-450) th/mm3 BMP 12/07/17 05:13 Sodium 139 Potassium 4.0 Chloride 104 Carbon Dioxide 26.8 BUN 14 Creatinine 1.34 H Calcium 8.1 L Liver Function 12/07/17 Range/Units 05:13 Total Bilirubin 0.2 (0.2-1.0) mg/dL AST 13 L (15-37) U/L ALT 10 L (12-78) U/L Alkaline Phosphatase 87 (45-117) U/L Albumin 3.0 L (3.4-5.0) g/dL <Mackenzie Lancaster - 12/07/17 10:33> Abnormal lab results 12/06/17 12/06/17 12/07/17 Range/Units 07:17 07:17 05:13 RBC 3.70 L 3.73 L (4.50-5.90) mil/mm3 Hgb 10.4 L 10.4 L (13.0-17.0) gm/dL Hct 30.5 L 31.1 L (39.0-51.0) % MPV 6.2 L 6.2 L (7.0-11.0) fL Neut % (Auto) 74.6 H (16.0-70.0) % [place] % (Auto) 8.5 H 9.0 H (0.0-8.0) % Eos % (Auto) 4.7 H (0.0-4.0) % Creatinine (0.60-1.30) mg/dL Estimated GFR 57 L (>89) mL/min Random Glucose 109 H (74-106) mg/dL Calcium (8.5-10.1) mg/dL AST (15-37) U/L ALT 10 L (12-78) U/L Albumin 2.9 L (3.4-5.0) g/dL 12/07/17 Range/Units 05:13 RBC (4.50-5.90) mil/mm3 Hgb (13.0-17.0) gm/dL Hct (39.0-51.0) % MPV (7.0-11.0) fL Neut % (Auto) (16.0-70.0) % [place] % (Auto) (0.0-8.0) % Eos % (Auto) (0.0-4.0) % Creatinine 1.34 H (0.60-1.30) mg/dL Estimated GFR 55 L (>89) mL/min Random Glucose (74-106) mg/dL Calcium 8.1 L (8.5-10.1) mg/dL AST 13 L (15-37) U/L ALT 10 L (12-78) U/L Albumin 3.0 L (3.4-5.0) g/dL Short CBC 12/06/17 12/07/17 Range/Units 07:17 05:13 WBC 7.8 7.5 (4.0-11.0) th/mm3 Hgb 10.4 L 10.4 L (13.0-17.0) gm/dL Hct 30.5 L 31.1 L (39.0-51.0) % Plt Count 336 319 (150-450) th/mm3 BMP 12/06/17 12/07/17 07:17 05:13 Sodium 137 139 Potassium 3.8 4.0 Chloride 102 104 Carbon Dioxide 26.9 26.8 BUN 11 14 Creatinine 1.29 1.34 H Calcium 8.6 8.1 L Liver Function 12/06/17 12/07/17 Range/Units 07:17 05:13 Total Bilirubin 0.2 0.2 (0.2-1.0) mg/dL AST 16 13 L (15-37) U/L ALT 10 L 10 L (12-78) U/L Alkaline Phosphatase 86 87 (45-117) U/L Albumin 2.9 L 3.0 L (3.4-5.0) g/dL <Michelle Nuno - 12/07/17 08:04> - Imaging Impressions Head MRI 12/06/17 00:00 CONCLUSION: 1. Negative MR Brain with and without contrast. Head MRA 12/06/17 00:00 CONCLUSION: 1. Normal variant with origin of the right posterior cerebral artery. 2. Otherwise normal MRA without evidence of steno-occlusive disease, aneurysm, vascular malformation or vasculopathy. <Mackenzie Lancaster - 12/07/17 10:33> Impressions Head MRI 12/06/17 00:00 CONCLUSION: 1. Negative MR Brain with and without contrast. Head MRA 12/06/17 00:00 CONCLUSION: 1. Normal variant with origin of the right posterior cerebral artery. 2. Otherwise normal MRA without evidence of steno-occlusive disease, aneurysm, vascular malformation or vasculopathy. <Michelle Nuno - 12/07/17 08:04> Physical Exam Vital signs: Vital Signs 12/06/17 11:24 12/06/17 13:38 12/06/17 15:34 Temperature 97.9 F Pulse Rate 79 75 88 Respiratory Rate 19 16 18 Blood Pressure 138/80 Pulse Oximetry 98 09/14/18 16:00 12/06/17 19:10 12/06/17 19:13 Temperature 99.1 F 98.2 F Pulse Rate 90 97 H 100 H Respiratory Rate 20 18 Blood Pressure 146/87 H 151/88 H Pulse Oximetry 98 96 12/06/17 19:24 12/06/17 19:25 12/06/17 20:55 Temperature Pulse Rate 100 H Respiratory Rate 18 16 Blood Pressure Pulse Oximetry 98 12/06/17 22:01 12/06/17 23:39 12/07/17 00:43 Temperature 98.4 F Pulse Rate 92 H 92 H Respiratory Rate 18 20 16 Blood Pressure 113/64 Pulse Oximetry 97 12/07/17 03:00 12/07/17 03:24 12/07/17 07:00 Temperature 98.9 F 98 F Pulse Rate 81 87 85 Respiratory Rate 22 20 20 Blood Pressure 104/64 118/71 Pulse Oximetry 95 96 12/07/17 07:28 12/07/17 08:11 Temperature Pulse Rate 87 Respiratory Rate 20 Blood Pressure Pulse Oximetry 96 Intake & Output 12/06/17 12/07/17 12/07/17 18:59 06:59 18:59 Intake Total 360 / 360 700 / 700 Balance 360 / 360 700 / 700 Weight 80.195 kg Intake: Oral 360 / 360 700 / 700 Other: # Voids 2 Date of Last Bowel Movement 12/06/17 <Mackenzie Lancaster - 12/07/17 10:33> Vital Signs 12/06/17 09:05 12/06/17 11:24 12/06/17 13:38 Temperature 98.0 F 97.9 F Pulse Rate 91 H 79 75 Respiratory Rate 18 19 16 Blood Pressure 115/69 138/80 Pulse Oximetry 97 98 12/06/17 15:34 12/06/17 16:00 12/06/17 19:10 Temperature 99.1 F Pulse Rate 88 90 97 H Respiratory Rate 18 20 Blood Pressure 146/87 H Pulse Oximetry 98 12/06/17 19:13 12/06/17 19:24 12/06/17 19:25 Temperature 98.2 F Pulse Rate 100 H 100 H Respiratory Rate 18 18 Blood Pressure 151/88 H Pulse Oximetry 96 98 12/06/17 20:55 12/06/17 22:01 12/06/17 23:39 Temperature Pulse Rate 92 H Respiratory Rate 16 18 20 Blood Pressure Pulse Oximetry 12/07/17 00:43 12/07/17 03:00 12/07/17 03:24 Temperature 98.4 F 98.9 F Pulse Rate 92 H 81 87 Respiratory Rate 16 22 20 Blood Pressure 113/64 104/64 Pulse Oximetry 97 95 12/07/17 07:00 12/07/17 07:28 Temperature Pulse Rate 71 87 Respiratory Rate 20 Blood Pressure Pulse Oximetry Intake & Output 12/06/17 12/07/17 12/07/17 18:59 06:59 18:59 Intake Total 360 / 360 700 / 700 Balance 360 / 360 700 / 700 Weight 80.195 kg Intake: Oral 360 / 360 700 / 700 Other: # Voids 2 <YaakovMichelle Baeza - 12/07/17 08:04> - Constitutional no acute distress <YaakovMichelle Baeza - 12/07/17 08:04> - Routine HEENT Exam Head: Present: normocephalic, atraumatic <YaakovMichelle Baeza - 12/07/17 08:04> ENT: Present: mucous membranes moist <Michelle Nuno - 12/07/17 08:04> - Routine Respiratory Exam Comments: decreased breath sounds on the right, CTA on the left <YaakovMichelle Baeza - 12/07/17 08:04> - Routine Cardiovascular Exam Present: RRR, S1, S2. Absent: murmur <RobertaaronMichelle Baeza - 12/07/17 08:04> - Routine Abdominal Exam Present: soft, normoactive bowel sounds. Absent: tenderness <YaakovMichelle Baeza - 12/07/17 08:04> - Routine Neurological Exam Present: alert, oriented X3 <JietamrasmitaMichelle Baeza - 12/07/17 08:04> Assessment and Plan - Assessment (1) Mass of right lung Code(s): R91.8 - Other nonspecific abnormal finding of lung field Status: Acute (2) Back pain Code(s): M54.9 - Dorsalgia, unspecified Status: Acute (3) COPD (chronic obstructive pulmonary disease) Code(s): J44.9 - Chronic obstructive pulmonary disease, unspecified Status: Acute (4) Elevated serum creatinine Code(s): R79.89 - Other specified abnormal findings of blood chemistry Status : Acute (5) History of tobacco abuse Code(s): Z87.891 - Personal history of nicotine dependence Status: Acute (6) DVT prophylaxis Status: Acute (7) Nutrition, metabolism, and development symptoms Code(s): R63.8 - Other symptoms and signs concerning food and fluid intake Status: Acute <Mackenzie Lancaster - 12/07/17 10:33> (1) Mass of right lung Code(s): R91.8 - Other nonspecific abnormal finding of lung field Status: Acute Plan: 57 yo male with a known 6cm mass in the right lung. Patient follows with Dr. Mckeon. -Consult to Dr. Mckeon, oncology -Follow-up pathology-pathologist was contacted 12/06 who said that the biopsy of the lung completed yesterday does show high-grade malignancy. This was communicated to the patient and I have attempted to contact Dr. Mckeon. Official pathology report PENDING -Inpatient evaluation with thoracic surgery for potential surgical resection- Dr. Burrows -Staging CT scan of head- radiologist recommended brain MRI/MRA -Brain MRI and MRA- WNL -PFTs completed 12/07 per patient but no report in the computer as of yet -Status post IR for CT guided biopsy * SCDs only for VTE prophylaxis in anticipation of possible cardiothoracic surgery -Consult CM to aid in outpatient arrangements of medications, interventions, appointments (2) Back pain Code(s): M54.9 - Dorsalgia, unspecified Status: Acute Plan: Right sided upper back pain likely due to lung mass but could also be musculoskeletal due to his active job. - Pain scale with acetaminophen, oxycodone and morphine (3) COPD (chronic obstructive pulmonary disease) Code(s): J44.9 - Chronic obstructive pulmonary disease, unspecified Status: Acute Plan: Patient with a 42 year pack smoking history. - Duoneb treatments Q4hr - Will not start IV fluids due to patient's respiratory status. PO intake at this time. (4) Elevated serum creatinine Code(s): R79.89 - Other specified abnormal findings of blood chemistry Status : Acute Plan: Patient had elevated creatinine at 1.33 upon admission. He had a creatinine at 1.32 at his last visit in 11/05/17. This is likely CKD. - Monitor creatinine (5) History of tobacco abuse Code(s): Z87.891 - Personal history of nicotine dependence Status: Acute Plan: Patient with 42 pack year smoking history. He quit about 5 months ago. (6) DVT prophylaxis Status: Acute Plan: -bilateral SCDs -Defer chemical prophylaxis due to his thoracic surgery evaluation (7) Nutrition, metabolism, and development symptoms Code(s): R63.8 - Other symptoms and signs concerning food and fluid intake Status: Acute Plan: Fluids: P.o. fluid Electrolytes: Follow-up BMP and replete as needed. Protein corrected calcium: 8.9 Nutrition: Regular diet <Michelle Nuno - 12/07/17 08:56> - Assessment and Plan Contacted Dr. Mckeon 12/06 to communicate pathology report and further plans of care. Further plans for possible resection from Dr. Burrows and Dr. Mckeon. We are also awaiting the path report and PFT results. CM consulted to aid in patient signing up for medicaid. <Michelle Nuno - 12/07/17 08:04> - Attending Attestation Pt. seen, examined and discussed with Dr. Nuno. I agree with the findings and the plan as documented. <Mackenzie Lancaster - 12/07/17 10:33>
--- NOTE | 2017-12-07 08:49 | P.PNONC ---
Subjective Interval history: Afebrile. Patient sitting in bed, in no acute distress. His only complaint is his back pain which she states has not changed and he has had "for a while" Reports a good appetite. Denies N/V/D. Objective Vital Signs/Intake & Output: Vital Signs 12/06/17 09:05 12/06/17 11:24 12/06/17 13:38 Temperature 98.0 F 97.9 F Pulse Rate 91 H 79 75 Respiratory Rate 18 19 16 Blood Pressure 115/69 138/80 Pulse Oximetry 97 98 12/06/17 15:34 12/06/17 16:00 12/06/17 19:10 Temperature 99.1 F Pulse Rate 88 90 97 H Respiratory Rate 18 20 Blood Pressure 146/87 H Pulse Oximetry 98 12/06/17 19:13 12/06/17 19:24 12/06/17 19:25 Temperature 98.2 F Pulse Rate 100 H 100 H Respiratory Rate 18 18 Blood Pressure 151/88 H Pulse Oximetry 96 98 12/06/17 20:55 12/06/17 22:01 12/06/17 23:39 Temperature Pulse Rate 92 H Respiratory Rate 16 18 20 Blood Pressure Pulse Oximetry 12/07/17 00:43 12/07/17 03:00 12/07/17 03:24 Temperature 98.4 F 98.9 F Pulse Rate 92 H 81 87 Respiratory Rate 16 22 20 Blood Pressure 113/64 104/64 Pulse Oximetry 97 95 12/07/17 07:00 12/07/17 07:28 12/07/17 08:11 Temperature 98 F Pulse Rate 85 87 Respiratory Rate 20 20 Blood Pressure 118/71 Pulse Oximetry 96 96 Intake & Output 12/06/17 12/07/17 12/07/17 18:59 06:59 18:59 Intake Total 360 / 360 700 / 700 Balance 360 / 360 700 / 700 Weight 80.195 kg Intake: Oral 360 / 360 700 / 700 Other: # Voids 2 Date of Last Bowel Movement 12/06/17 Result Diagrams: 12/07/17 05:13 12/07/17 05:13 Laboratory Results: Laboratory Results - last 24 hr 12/07/17 12/07/17 05:13 05:13 WBC 7.5 RBC 3.73 L Hgb 10.4 L Hct 31.1 L MCV 83.3 MCH 27.7 MCHC 33.3 RDW 14.0 Plt Count 319 MPV 6.2 L Neut % (Auto) 69.2 Lymph % (Auto) 16.3 [place] % (Auto) 9.0 H Eos % (Auto) 4.7 H Baso % (Auto) 0.8 Neut # (Auto) 5.2 Lymph # (Auto) 1.2 [place] # (Auto) 0.7 Eos # (Auto) 0.3 Baso # (Auto) 0.1 WBC Differential . Differential Comment Auto diff final Sodium 139 Potassium 4.0 Chloride 104 Carbon Dioxide 26.8 Anion Gap 8 BUN 14 Creatinine 1.34 H Estimated GFR 55 L Random Glucose 99 Calcium 8.1 L Total Bilirubin 0.2 AST 13 L ALT 10 L Alkaline Phosphatase 87 Total Protein 6.5 Albumin 3.0 L Imaging Studies: Impressions Head MRI 12/06/17 00:00 CONCLUSION: 1. Negative MR Brain with and without contrast. Head MRA 12/06/17 00:00 CONCLUSION: 1. Normal variant with origin of the right posterior cerebral artery. 2. Otherwise normal MRA without evidence of steno-occlusive disease, aneurysm, vascular malformation or vasculopathy. Medications: Active Medications Generic Name Dose Route Start Last Admin Trade Name Freq PRN Reason Stop Dose Admin Albuterol 1 ampul 12/04/17 16:00 12/07/17 07:26 Duoneb Neb ([facility]) NEB 1 ampul Q4HR NEB JEREMY Administration Morphine Sulfate 2 mg 12/04/17 16:08 12/06/17 18:08 Morphine Inj IV.PUSH 2 mg Q3H PRN Administration BREAKTHROUGH PAIN Oxycodone HCl 5 mg 12/04/17 15:29 12/07/17 08:24 Roxicodone PO 5 mg Q4H PRN Administration PAIN SCALE 3 TO 5 Oxycodone HCl 10 mg 12/04/17 15:29 12/06/17 20:25 Roxicodone PO 10 mg Q4H PRN Administration PAIN SCALE 6 TO 10 Objective Remarks: GENERAL: Well-nourished, well-developed middle-aged male patient, in no acute distress. SKIN: Warm and dry. HEAD: Normocephalic. EYES: No scleral icterus. No injection or drainage. NECK: Supple, trachea midline. CARDIOVASCULAR: Regular rate and rhythm without murmurs. RESPIRATORY: Posterior breath sounds clear, equal bilaterally. No accessory muscle use. GASTROINTESTINAL: Abdomen soft, non-tender, nondistended. EXTREMITIES: No cyanosis, or edema. MUSCULOSKELETAL: Adequate muscle tone. NEUROLOGICAL: No obvious focal deficit. Awake, alert, and oriented x3. PSYCHIATRIC: Appropriate mood and affect; insight and judgment normal. Assessment/Plan - Plan Mr. Gómez is a pleasant 57-year-old gentleman, who was found to have a 5 cm mass involving the right upper lobe of the lung in September 2017. Follow-up and further testing was delayed due to lack of insurance. Patient presented to the emergency department with progressive worsening of the right-sided upper posterior chest pain, persistent cough and difficulty breathing. He is status post CT-guided biopsy of the right upper lung mass. Plan: 1. Right upper lobe lung mass, status post biopsy. Awaiting pathology. 2. MR brain negative for metastatic disease. Pulmonary function test pending. 3. Continue supportive care.
--- NOTE | 2017-12-07 11:39 | P.PNCV ---
- Note Subjective/Hospital Course: 57yo male with RUL mass and chest wall pain consistent with Pancoast tumor. His lung biopsy is pending, but very high probability of malignancy. No CT-PET secondary to insurance issues. Brain MRI is negative. PFTs pending also. Objective: Vital Signs - 24 hr 12/06/17 13:38 12/06/17 15:34 12/06/17 16:00 Temperature 97.9 F 99.1 F Pulse Rate 75 88 90 Respiratory Rate 16 18 20 Blood Pressure 138/80 146/87 H Pulse Oximetry 98 98 12/06/17 19:10 12/06/17 19:13 12/06/17 19:24 Temperature 98.2 F Pulse Rate 97 H 100 H 100 H Respiratory Rate 18 18 Blood Pressure 151/88 H Pulse Oximetry 96 12/06/17 19:25 12/06/17 20:55 12/06/17 22:01 Temperature Pulse Rate Respiratory Rate 16 18 Blood Pressure Pulse Oximetry 98 12/06/17 23:39 12/07/17 00:43 12/07/17 03:00 Temperature 98.4 F 98.9 F Pulse Rate 92 H 92 H 81 Respiratory Rate 20 16 22 Blood Pressure 113/64 104/64 Pulse Oximetry 97 95 12/07/17 03:24 12/07/17 07:00 12/07/17 07:28 Temperature 98 F Pulse Rate 87 85 87 Respiratory Rate 20 20 20 Blood Pressure 118/71 Pulse Oximetry 96 12/07/17 08:11 Temperature Pulse Rate Respiratory Rate Blood Pressure Pulse Oximetry 96 Labs: Laboratory Results - last 12 hr 12/07/17 12/07/17 05:13 05:13 WBC 7.5 RBC 3.73 L Hgb 10.4 L Hct 31.1 L MCV 83.3 MCH 27.7 MCHC 33.3 RDW 14.0 Plt Count 319 MPV 6.2 L Neut % (Auto) 69.2 Lymph % (Auto) 16.3 [place] % (Auto) 9.0 H Eos % (Auto) 4.7 H Baso % (Auto) 0.8 Neut # (Auto) 5.2 Lymph # (Auto) 1.2 [place] # (Auto) 0.7 Eos # (Auto) 0.3 Baso # (Auto) 0.1 WBC Differential . Differential Comment Auto diff final Sodium 139 Potassium 4.0 Chloride 104 Carbon Dioxide 26.8 Anion Gap 8 BUN 14 Creatinine 1.34 H Estimated GFR 55 L Random Glucose 99 Calcium 8.1 L Total Bilirubin 0.2 AST 13 L ALT 10 L Alkaline Phosphatase 87 Total Protein 6.5 Albumin 3.0 L Result Diagrams: 12/07/17 05:13 12/07/17 05:13 Imaging: Abdomen/Pelvis CT 12/04/17 13:48 CONCLUSION: 1. Atherosclerosis. 2. Mild diverticulosis. 3. Lung nodules and patchy groundglass infiltrates. Chest CT 12/04/17 13:48 CONCLUSION: 1. 5.8 x 6.3 x 5.4 cm mass in the right upper lobe highly suspicious for malignancy. This lesion is readily amenable to CT-guided biopsy. 2. COPD changes within the pulmonary parenchyma. 3. No significant hilar or mediastinal adenopathy is identified. Head CT 12/05/17 00:00 CONCLUSION: Abnormal. Recommend further evaluation with brain MRI and MRA Lung Biopsy CT 12/05/17 00:00 CONCLUSION: 1. Uncomplicated CT guided biopsy. Chest X-Ray 12/05/17 09:03 CONCLUSION: No pneumothorax Head MRI 12/06/17 00:00 CONCLUSION: 1. Negative MR Brain with and without contrast. Head MRA 12/06/17 00:00 CONCLUSION: 1. Normal variant with origin of the right posterior cerebral artery. 2. Otherwise normal MRA without evidence of steno-occlusive disease, aneurysm, vascular malformation or vasculopathy. 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 I discussed him with Dr. Mckeon regarding potential neoadjuvant tx vs surgical resection and adjuvant tx. I will await final pathology and glad to go either way.
--- NOTE | 2017-12-07 17:22 | P.PNONC ---
Subjective Interval history: Patient seen and examined, vital signs, labs, medications, imaging studies including MRI, MRA of the brain and CT brain were reviewed. Cco & President notes including cardiothoracic surgery reviewed, case also discussed in detail with thoracic surgeon. Subjectively; patient reports pain along the right upper back along the right shoulder blade. He denies difficulty breathing, hemoptysis, anginal chest pain or fevers. Objective Vital Signs/Intake & Output: Vital Signs 12/06/17 19:10 12/06/17 19:13 12/06/17 19:24 Temperature 98.2 F Pulse Rate 97 H 100 H 100 H Respiratory Rate 18 18 Blood Pressure 151/88 H Pulse Oximetry 96 12/06/17 19:25 12/06/17 20:55 12/06/17 22:01 Temperature Pulse Rate Respiratory Rate 16 18 Blood Pressure Pulse Oximetry 98 12/06/17 23:39 12/07/17 00:43 12/07/17 03:00 Temperature 98.4 F 98.9 F Pulse Rate 92 H 92 H 81 Respiratory Rate 20 16 22 Blood Pressure 113/64 104/64 Pulse Oximetry 97 95 12/07/17 03:24 12/07/17 07:00 12/07/17 07:28 Temperature 98 F Pulse Rate 87 85 87 Respiratory Rate 20 20 20 Blood Pressure 118/71 Pulse Oximetry 96 12/07/17 08:11 12/07/17 11:00 12/07/17 11:51 Temperature 98.7 F Pulse Rate 84 87 Respiratory Rate 21 20 Blood Pressure 128/85 Pulse Oximetry 96 97 12/07/17 16:03 12/07/17 16:13 Temperature 98.3 F Pulse Rate 88 88 Respiratory Rate 18 18 Blood Pressure 130/80 Pulse Oximetry 97 Intake & Output 12/06/17 12/07/17 12/07/17 18:59 06:59 18:59 Intake Total 360 / 360 700 / 700 Balance 360 / 360 700 / 700 Weight 80.195 kg Intake: Oral 360 / 360 700 / 700 Other: # Voids 2 Date of Last Bowel Movement 12/06/17 Result Diagrams: 12/07/17 05:13 12/07/17 05:13 Laboratory Results: Laboratory Results - last 24 hr 12/07/17 12/07/17 05:13 05:13 WBC 7.5 RBC 3.73 L Hgb 10.4 L Hct 31.1 L MCV 83.3 MCH 27.7 MCHC 33.3 RDW 14.0 Plt Count 319 MPV 6.2 L Neut % (Auto) 69.2 Lymph % (Auto) 16.3 [place] % (Auto) 9.0 H Eos % (Auto) 4.7 H Baso % (Auto) 0.8 Neut # (Auto) 5.2 Lymph # (Auto) 1.2 [place] # (Auto) 0.7 Eos # (Auto) 0.3 Baso # (Auto) 0.1 WBC Differential . Differential Comment Auto diff final Sodium 139 Potassium 4.0 Chloride 104 Carbon Dioxide 26.8 Anion Gap 8 BUN 14 Creatinine 1.34 H Estimated GFR 55 L Random Glucose 99 Calcium 8.1 L Total Bilirubin 0.2 AST 13 L ALT 10 L Alkaline Phosphatase 87 Total Protein 6.5 Albumin 3.0 L Medications: Active Medications Generic Name Dose Route Start Last Admin Trade Name Freq PRN Reason Stop Dose Admin Albuterol 1 ampul 12/04/17 16:00 12/07/17 16:13 Duoneb Neb ([facility]) NEB 1 ampul Q4HR NEB [facility] Administration Morphine Sulfate 2 mg 12/04/17 16:08 12/06/17 18:08 Morphine Inj IV.PUSH 2 mg Q3H PRN Administration BREAKTHROUGH PAIN Oxycodone HCl 5 mg 12/04/17 15:29 12/07/17 13:44 Roxicodone PO 5 mg Q4H PRN Administration PAIN SCALE 3 TO 5 Oxycodone HCl 10 mg 12/04/17 15:29 12/06/17 20:25 Roxicodone PO 10 mg Q4H PRN Administration PAIN SCALE 6 TO 10 Objective Remarks: GENERAL: Middle-aged man, sitting up, appears to be no acute distress.. SKIN: Warm and dry. HEAD: Normocephalic. EYES: No scleral icterus. No injection or drainage. NECK: Supple, trachea midline. No JVD or lymphadenopathy. LYMPHATIC: No adenopathy. CARDIOVASCULAR: Regular rate and rhythm without murmurs. RESPIRATORY: Breath sounds equal bilaterally. No accessory muscle use. GASTROINTESTINAL: Abdomen soft, non-tender, nondistended. EXTREMITIES: No cyanosis, or edema. MUSCULOSKELETAL: Pain noted along the right upper posterior chest wall, worse with palpation. NEUROLOGICAL: No obvious focal deficit. Awake, alert, and oriented x3. PSYCHIATRIC: Appropriate mood and affect; insight and judgment normal. Assessment/Plan - Plan Mr. Gómez is a pleasant 57-year-old gentleman, who was found to have a 5 cm mass involving the right upper lobe of the lung in September 2017. Follow-up and further testing was delayed due to lack of insurance. Patient presented to the emergency department with progressive worsening of the right-sided upper posterior chest pain, persistent cough and difficulty breathing. He is status post CT-guided biopsy of the right upper lung mass. Repeat CT thorax revealed mass abutting the posterior right chest wall, concerning for direct invasion into the brachial plexus posteriorly this appears to be likely especially given patient's symptoms of pain in the right upper back. CT-guided biopsy preliminary results indicate poorly differentiated malignancy. Case discussed in detail with thoracic surgery. The tumor does not appear to be readily resectable. He has been recommended neoadjuvant combined chemoradiotherapy followed by reevaluation for surgical resection. Plan: 1. 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 After consideration of his symptoms and review of imaging studies would be most reasonable to pursue combined chemoradiotherapy as initial treatment. 2. MR brain negative for metastatic disease. Pulmonary function test pending. 3. Pain along the right upper back: Likely neuropathic in nature given the involvement of the posterior chest wall; I have initiated him on gabapentin 100 mg p.o. twice daily. This may be continued at the time of discharge if he responds well to it. 4. Disposition: From an oncologic standpoint he is clear for discharge, we will make outpatient arrangements for radiation oncology evaluation as well as outpatient delivery of systemic chemotherapy.
[2017-12-07] MEDS: Gabapentin 100 MG Capsule PO SCH (23:56)
[2017-12-08 04:55] LABS: Baso # (Auto) 0.1 th/mm3 (0.0-0.2); Baso % (Auto) 0.7 % (0.0-2.0); Eos # (Auto) 0.2 th/mm3 (0.0-0.4); Eos % (Auto) 3.1 % (0.0-4.0); Hematocrit 31.5 % (39.0-51.0); Hemoglobin 10.6 gm/dL (13.0-17.0); Lymph # (Auto) 1.2 th/mm3 (1.0-4.8); Lymph % (Auto) 15.5 % (9.0-44.0); Mean Corpuscular HGB Conc 33.7 % (32.0-36.0); Mean Corpuscular Hemoglobin 28.3 pg (27.0-34.0); Mean Corpuscular Volume 83.9 fL (80.0-100.0); Mean Platelet Volume 6.2 fL (7.0-11.0); Mono # (Auto) 0.6 th/mm3 (0.0-0.9); Mono % (Auto) 7.8 % (0.0-8.0); Neut # (Auto) 5.5 th/mm3 (1.8-7.7); Neut % (Auto) 72.9 % (16.0-70.0); Platelet Count 339 th/mm3 (150-450); Red Blood Count 3.76 mil/mm3 (4.50-5.90); Red Cell Distribution Width 14.2 % (11.6-17.2); White Blood Count 7.5 th/mm3 (4.0-11.0)
[2017-12-08 05:24] LABS: Calcium 8.6 mg/dL (8.5-10.1); Carbon Dioxide 24.9 meq/L (21.0-32.0); Potassium 4.1 meq/L (3.5-5.1)
[2017-12-08] MEDS: Gabapentin 100 MG Capsule PO SCH (08:16)
--- NOTE | 2017-12-08 08:50 | P.PNFP ---
Subjective Interval history: Patient seen and examined at bedside today. Reports oncology in cardiothoracic surgery saw him yesterday. He is clear with the plan of outpatient chemo and possible resection if the tumor shrinks. He does report right-sided back pain, cough, shortness of breath, constipation. He denies chest pain, abdominal pain. Results - Labs Result diagrams: 12/08/17 04:15 12/08/17 04:15 Abnormal lab results 12/08/17 12/08/17 Range/Units 04:15 04:15 RBC 3.76 L (4.50-5.90) mil/mm3 Hgb 10.6 L (13.0-17.0) gm/dL Hct 31.5 L (39.0-51.0) % MPV 6.2 L (7.0-11.0) fL Neut % (Auto) 72.9 H (16.0-70.0) % Creatinine 1.36 H (0.60-1.30) mg/dL Estimated GFR 54 L (>89) mL/min Short CBC 12/08/17 Range/Units 04:15 WBC 7.5 (4.0-11.0) th/mm3 Hgb 10.6 L (13.0-17.0) gm/dL Hct 31.5 L (39.0-51.0) % Plt Count 339 (150-450) th/mm3 BMP 12/08/17 04:15 Sodium 137 Potassium 4.1 Chloride 103 Carbon Dioxide 24.9 BUN 16 Creatinine 1.36 H Calcium 8.6 Physical Exam Vital signs: Vital Signs 12/07/17 11:00 12/07/17 11:51 12/07/17 16:03 Temperature 98.7 F 98.3 F Pulse Rate 84 87 88 Respiratory Rate 21 20 18 Blood Pressure 128/85 130/80 Pulse Oximetry 97 97 12/07/17 16:13 12/07/17 17:42 12/07/17 19:00 Temperature 98 F Pulse Rate 88 95 H 91 H Respiratory Rate 18 22 Blood Pressure 127/70 Pulse Oximetry 12/07/17 19:14 12/07/17 20:00 12/07/17 20:30 Temperature Pulse Rate 93 H Respiratory Rate 18 16 16 Blood Pressure Pulse Oximetry 98 95 12/07/17 22:00 12/07/17 23:00 12/07/17 23:28 Temperature 98.8 F Pulse Rate 114 H 83 96 H Respiratory Rate 16 16 Blood Pressure 130/81 Pulse Oximetry 92 L 12/08/17 01:42 12/08/17 03:00 12/08/17 03:22 Temperature 98.6 F Pulse Rate 84 89 Respiratory Rate 16 16 16 Blood Pressure 110/64 Pulse Oximetry 97 Intake & Output 12/07/17 12/08/17 12/08/17 18:59 06:59 18:59 Intake Total 1680 / 1680 480 / 480 Balance 1680 / 1680 480 / 480 Weight 80.286 kg Intake: Oral 1680 / 1680 480 / 480 Other: # Voids 4 3 Date of Last Bowel Movement 12/06/17 12/06/17 - Constitutional no acute distress - Routine HEENT Exam Head: Present: normocephalic, atraumatic ENT: Present: mucous membranes moist - Routine Respiratory Exam Comments: decreased breath sounds on the right, mild expiratory wheezing - Routine Cardiovascular Exam Present: RRR, S1, S2 - Routine Abdominal Exam Present: soft, normoactive bowel sounds - Routine Neurological Exam Present: alert, oriented X3 Assessment and Plan - Assessment (1) Mass of right lung Code(s): R91.8 - Other nonspecific abnormal finding of lung field Status: Acute Plan: 57 yo male with a known 6cm mass in the right lung. T3,N0,M0, stage 2B. Patient follows with Dr. Mckeon. -Consult to Dr. Mckeon, oncology -Follow-up pathology-pathologist was contacted 12/06 who said that the biopsy of the lung completed yesterday does show high-grade malignancy. This was communicated to the patient and I have attempted to contact Dr. Mckeon. Official pathology report PENDING. Dr. Mckeon recommend outpatient follow up for oncology radiation evaluation and systemic chemotherapy. -Inpatient evaluation with thoracic surgery for potential surgical resection- Dr. Burrows following but will hold off on resection due to location of tumor. -Staging CT scan of head- radiologist recommended brain MRI/MRA -Brain MRI and MRA- WNL -PFTs completed 12/07 per patient but no report in the computer as of yet. Pulm function lab is closed on the weekend. Will follow up for results. -Status post IR for CT guided biopsy * SCDs only for VTE prophylaxis -Consult CM to aid in outpatient arrangements of medications, interventions, appointments (2) Back pain Code(s): M54.9 - Dorsalgia, unspecified Status: Acute Plan: Right sided upper back pain likely due to lung mass but could also be musculoskeletal due to his active job. - Continue oxycodone and gabapentin at home. (3) COPD (chronic obstructive pulmonary disease) Code(s): J44.9 - Chronic obstructive pulmonary disease, unspecified Status: Acute Plan: Patient with a 42 year pack smoking history. - Duoneb treatments Q4hr as needed - Will not start IV fluids due to patient's respiratory status. PO intake at this time. (4) Elevated serum creatinine Code(s): R79.89 - Other specified abnormal findings of blood chemistry Status : Acute Plan: Patient had elevated creatinine at 1.33 upon admission. He had a creatinine at 1.32 at his last visit in 11/05/17. This is likely CKD. - Monitor creatinine (5) History of tobacco abuse Code(s): Z87.891 - Personal history of nicotine dependence Status: Acute Plan: Patient with 42 pack year smoking history. He quit about 5 months ago. (6) DVT prophylaxis Status: Acute Plan: -bilateral SCDs -Defer chemical prophylaxis due to his thoracic surgery evaluation (7) Nutrition, metabolism, and development symptoms Code(s): R63.8 - Other symptoms and signs concerning food and fluid intake Status: Acute Plan: Fluids: P.o. fluid Electrolytes: Follow-up BMP and replete as needed. Nutrition: Regular diet - Assessment and Plan Patient will be discharged today after case management aids him in signing him up for medicaid now that he has a accurate staging of his disease. He will follow up with Dr. Mckeon as an outpatient for chemotherapy.
--- NOTE | 2017-12-08 09:32 | P.DS ---
Date of admission: 12/04/17 14:57 Primary care physician: No Primary Care Physician Brief History from admission: 57-year-old male with a history of right lung mass who presented to the ED with severe right shoulder pain. The pain is constant, stabbing in nature, and radiates from the back through the front of the chest. Patient was seen at [facility] about 6 weeks ago for the same right shoulder pain and was found to have a right lung mass. Patient saw Dr. Mckeon, oncologist, one time as an outpatient. Dr. Mckeon suggested patient to have a PET scan and lung biopsy. Patient was prescribed pain medicines and to follow-up after these tests were completed. Due to insurance issues, patient was not able to complete these or fill the pain medications. Today patient reports that he is short of breath, but this has been his normal for the past several weeks. He does report increased dyspnea on exertion which is made it difficult for him get through his work days. He has a reactive cough with bloody sputum. Past medical history: Patient has not seen a physician in many years. He denies any other medical problems. 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, lives with son in [facility] [id number] history but patient quit smoking 140 days ago Denies drug use or alcohol use Code Status: Full code DS: Diagnosis - Discharge Diagnosis (1) Mass of right lung Status: Acute (2) Back pain Status: Acute (3) COPD (chronic obstructive pulmonary disease) Status: Acute (4) Elevated serum creatinine Status: Acute (5) History of tobacco abuse Status: Acute (6) DVT prophylaxis Status: Acute (7) Nutrition, metabolism, and development symptoms Status: Acute DS: Medications - Discharge Medications Prescriptions: gabapentin 100 mg PO BID 30 Days #60 cap ipratropium-albuterol 1 amp NEB Q4HR NEB 30 Days #180 ml oxycodone 10 mg PO Q4H PRN 3 Days #18 tab PRN Reason: Acute Pain sennosides [Senna Lax] 17.2 mg PO Q12H PRN 30 Days #60 tab PRN Reason: Moderate Constipation DS: Summary Hospital Course: 57-year-old male with a history of a 5 cm lung mass. He was hospitalized for further workup. He had a lung biopsy and the pathology is still pending. He had CT imaging and brain MRI for staging. He has not had a PET due to insurance issues. Clinically Mr. Gómez has T3, N0, M0, stage 2B. The patient was seen by oncology and cardiothoracic surgery who have decided to treat him with combined chemoradiotherapy followed by reevaluation for surgical resection. This will be done as an outpatient. He will follow-up with Dr. Mckeon as an outpatient. He was also discharged home with information on how to apply for Medicaid. - Time Spent with Patient Total time spent providing and/or coordinating discharge services: Greater than 30 minutes - Quality: VTE Deep Vein Thrombosis/Pulmonary Embolism Present on Admission: No Exam Vital signs: Vital Signs 12/07/17 11:00 12/07/17 11:51 12/07/17 16:03 Temperature 98.7 F 98.3 F Pulse Rate 84 87 88 Respiratory Rate 21 20 18 Blood Pressure 128/85 130/80 Pulse Oximetry 97 97 12/07/17 16:13 12/07/17 17:42 12/07/17 19:00 Temperature 98 F Pulse Rate 88 95 H 91 H Respiratory Rate 18 22 Blood Pressure 127/70 Pulse Oximetry 12/07/17 19:14 12/07/17 20:00 12/07/17 20:30 Temperature Pulse Rate 93 H Respiratory Rate 18 16 16 Blood Pressure Pulse Oximetry 98 95 12/07/17 22:00 12/07/17 23:00 12/07/17 23:28 Temperature 98.8 F Pulse Rate 114 H 83 96 H Respiratory Rate 16 16 Blood Pressure 130/81 Pulse Oximetry 92 L 12/08/17 01:42 12/08/17 03:00 12/08/17 03:22 Temperature 98.6 F Pulse Rate 84 89 Respiratory Rate 16 16 16 Blood Pressure 110/64 Pulse Oximetry 97 12/08/17 07:00 12/08/17 09:05 Temperature 98.4 F Pulse Rate 75 85 Respiratory Rate 16 20 Blood Pressure Pulse Oximetry 97 95 Intake & Output 12/07/17 12/08/17 12/08/17 18:59 06:59 18:59 Intake Total 1680 / 1680 480 / 480 Balance 1680 / 1680 480 / 480 Weight 80.286 kg Intake: Oral 1680 / 1680 480 / 480 Other: # Voids 4 3 Date of Last Bowel Movement 12/06/17 12/06/17 12/06/17 Results Procedures completed during hospitalization: CT-guided lung biopsy on December 05. Pathology pending. Pulmonary function testing: Report pending. Labs on day of discharge: Labs from last 24 hours 12/08/17 12/08/17 04:15 04:15 WBC 7.5 RBC 3.76 L Hgb 10.6 L Hct 31.5 L MCV 83.9 MCH 28.3 MCHC 33.7 RDW 14.2 Plt Count 339 MPV 6.2 L Neut % (Auto) 72.9 H Lymph % (Auto) 15.5 [place] % (Auto) 7.8 Eos % (Auto) 3.1 Baso % (Auto) 0.7 Neut # (Auto) 5.5 Lymph # (Auto) 1.2 [place] # (Auto) 0.6 Eos # (Auto) 0.2 Baso # (Auto) 0.1 WBC Differential . Differential Comment Auto diff final Sodium 137 Potassium 4.1 Chloride 103 Carbon Dioxide 24.9 Anion Gap 9 BUN 16 Creatinine 1.36 H Estimated GFR 54 L Random Glucose 100 Calcium 8.6 - Impressions ITS Impressions Abdomen/Pelvis CT 12/04/17 13:48 CONCLUSION: 1. Atherosclerosis. 2. Mild diverticulosis. 3. Lung nodules and patchy groundglass infiltrates. Chest CT 12/04/17 13:48 CONCLUSION: 1. 5.8 x 6.3 x 5.4 cm mass in the right upper lobe highly suspicious for malignancy. This lesion is readily amenable to CT-guided biopsy. 2. COPD changes within the pulmonary parenchyma. 3. No significant hilar or mediastinal adenopathy is identified. Head CT 12/05/17 00:00 CONCLUSION: Abnormal. Recommend further evaluation with brain MRI and MRA Lung Biopsy CT 12/05/17 00:00 CONCLUSION: 1. Uncomplicated CT guided biopsy. Chest X-Ray 12/05/17 09:03 CONCLUSION: No pneumothorax Head MRI 12/06/17 00:00 CONCLUSION: 1. Negative MR Brain with and without contrast. Head MRA 12/06/17 00:00 CONCLUSION: 1. Normal variant with origin of the right posterior cerebral artery. 2. Otherwise normal MRA without evidence of steno-occlusive disease, aneurysm, vascular malformation or vasculopathy. Discharge Plan - Discharge Disposition Patient Disposition: 01 Discharge Home - Discharge Condition Condition: Stable - Discharge Order Discharge Orders: Discharge Order (Routine); Ordered 12/08/17 Ordered By: Michelle Nuno - Discharge Details Anticipated Discharge Date: 12/08/17 - Physicians Team Primary Care Provider: Primary Care Jasmin Finley Attending Provider: Mackenzie Lancaster Other Providers: Cooper Mckeon MD ; Coty Burrows MD
--- NOTE | 2017-12-08 10:06 | P.PNADD ---
Addendum to Inpatient Note Reason for Addendum: Additional Documentation Additional information: Pain prescriptions written for acute pain, cancer related. E-FORCSE was queried prior to ordering scheduled medications. No abnormalities noted.
== END 2017-12-08 12:29 | disposition home or self-care (01) ==
LOC: NEPC 13:14 → NEDA 14:57 → N05 16:30 → HCIN 12-06 15:53
PROVIDERS: ADMIT Family Medicine; ATTEND Family Medicine

== ENCOUNTER 2018-02-22 13:46 | Observation (INO) ==
--- NOTE | 2018-02-22 14:55 | ED ---
HPI General Chief Complaint: Seizure Stated Complaint: SOB/possible seizure Time Seen by Provider: 02/22/18 14:40 Source: patient and family Mode of arrival: ambulatory Limitations: altered mental status History of Present Illness HPI Narrative: 57-year-old male was brought in by his son for seizure, and confusion. 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 Patient received radiation and chemotherapy. Patient recently had CT of the thorax without no results of that. Patient son states the patient started having recurrent seizure episodes since 1230 this afternoon. The seizures episodes described a generalized tonic- clonic seizure. Patient complains of headache intermittently. The seizure episodes lasted several minutes for each episode. No report of urinary or bowel incontinence. Patient did not injure himself during the seizure episode. Patient son states that no previous history of seizure. Patient is an ex- smoker. Patient also has history of COPD. MD complaint: Reports seizure Onset (ago): hour(s) Description of Episode: Reports tonic-clonic movement -: minutes(s) Witnessed: yes - by other Trauma: No Seizure History: Reports none Place: home Possible Precipitating Event: Reports none Associated symptoms: Reports denies other symptoms Treatments prior to arrival: Reports none Related Data Home Medications Medication Instructions Recorded Confirmed ondansetron HCl 8 mg PO QID PRN 02/22/18 02/22/18 oxycodone-acetaminophen 1 tab PO Q4H PRN 02/22/18 02/22/18 prednisone 10 mg PO DAILY 02/22/18 02/22/18 prochlorperazine maleate 10 mg PO TID PRN 02/22/18 02/22/18 Allergies Allergy/AdvReac Type Severity Reaction Status Date / Time erythromycin base Allergy Intermediate Hives Verified 02/22/18 14:22 Review of Systems ROS: all other systems reviewed are negative [facility] Medical History Medical History Lung mass (Acute) No significant past surgical history (Acute) Pulmonary nodules/lesions, multiple (Acute) Tobacco abuse, in remission (Acute) Family History Family History Other Family history normal Social History Social History Substance History: Active Abuse Second Hand Smoke Exposure: No Smoking Status: Former smoker Tobacco Type: Cigarettes Packs Per Day: 1 Cigarettes Per Day: 20.0 Years Smoked: 42 Pack-Years: 42.00 Smoking End Date: June 2017 How Often Do You Have a Drink Containing Alcohol: Never Hx Recent Travel: No Recent Travel in [facility] within the Last 8 Weeks: No Recent Out of Country Travel within the Last 8 Weeks: No Substance Abuse Detail Marijuana: Substance Use Status: Active Route Used Substance Abuse: By Mouth Immunization History Tetanus Immunization: Unsure Exam Narrative Exam Narrative: GENERAL: Well-nourished, well-developed patient. SKIN: Focused skin assessment warm/dry. HEAD: Normocephalic. EYES: No scleral icterus. No injection or drainage. Pupils 1.5 mm equal reactive. NECK: Supple, trachea midline. No JVD or lymphadenopathy. CARDIOVASCULAR: Regular rate and rhythm without murmurs, gallops, or rubs. RESPIRATORY: Breath sounds equal bilaterally. No accessory muscle use. GASTROINTESTINAL: Abdomen soft, non-tender, nondistended. MUSCULOSKELETAL: No cyanosis, or edema. BACK: Nontender without obvious deformity. No CVA tenderness. Neurologic exam: Patient is lethargic with intermittent jerking movement of the extremity. Patient answer questions appropriately. Patient moves all extremity well. No obvious focal neurological deficit. Course Initial Documented Vital Signs Temperature 97.5 F L 02/22/18 13:53 Pulse Rate 104 H 02/22/18 13:53 Respiratory Rate 16 02/22/18 13:53 Blood Pressure 153/93 H 02/22/18 13:53 Pulse Oximetry 100 02/22/18 13:53 Last Documented Vital Signs Temperature 98.1 F 02/23/18 17:23 Pulse Rate 88 02/23/18 17:23 Respiratory Rate 16 02/23/18 17:23 Blood Pressure 128/81 02/23/18 17:23 Pulse Oximetry 99 02/23/18 17:23 Medical Decision Making MDM Narrative Medical decision making narrative: 57-year-old male with new onset seizure. History of lung CA. Normal saline solution 125 cc an hour. Ativan 2 mg IV given. Medical Screen Exam Complete: Yes Emergency Medical Condition: Yes Differential Diagnosis Differential Diagnosis: Differential diagnosis including new onset seizure, metastatic disease to the brain, electrolyte abnormality Lab Data Lab results reviewed: Yes I reviewed the patient's lab results. Result diagrams: 02/23/18 07:36 02/23/18 07:36 Lab Results 02/22/18 02/22/18 02/22/18 Range/Units 15:04 15:04 15:04 WBC 3.7 L (4.0-11.0) th/mm3 RBC 4.02 L (4.50-5.90) mil/mm3 Hgb 10.8 L (13.0-17.0) gm/dL Hct 33.3 L (39.0-51.0) % MCV 82.9 (80.0-100.0) fL MCH 26.9 L (27.0-34.0) pg MCHC 32.4 (32.0-36.0) % RDW 18.7 H (11.6-17.2) % Plt Count 274 (150-450) th/mm3 MPV 5.7 L (7.0-11.0) fL Neut % (Auto) 85.0 H (16.0-70.0) % Lymph % (Auto) 8.8 L (9.0-44.0) % Crisp % (Auto) 2.5 (0.0-8.0) % Eos % (Auto) 3.0 (0.0-4.0) % Baso % (Auto) 0.7 (0.0-2.0) % Neut # (Auto) 3.2 (1.8-7.7) th/mm3 Lymph # (Auto) 0.3 L (1.0-4.8) th/mm3 Crisp # (Auto) 0.1 (0.0-0.9) th/mm3 Eos # (Auto) 0.1 (0.0-0.4) th/mm3 Baso # (Auto) 0.0 (0.0-0.2) th/mm3 WBC Differential . Differential Comment Auto diff final Sodium 138 (136-145) meq/L Potassium 3.9 (3.5-5.1) meq/L Chloride 105 (98-107) meq/L Carbon Dioxide 27.3 (21.0-32.0) meq/L Anion Gap 6 (5-15) meq/L BUN 17 (7-18) mg/dL Creatinine 1.08 (0.60-1.30) mg/dL Estimated GFR 70 L (>89) mL/min Random Glucose 105 (74-106) mg/dL Hemoglobin A1c (4.3-6.0) % Calcium 8.7 (8.5-10.1) mg/dL Phosphorus 1.9 L (2.5-4.9) mg/dL Magnesium 2.1 (1.5-2.5) mg/dL Total Bilirubin 0.3 (0.2-1.0) mg/dL AST 12 L (15-37) U/L ALT 13 (12-78) U/L Alkaline Phosphatase 75 (45-117) U/L Total Creatine Kinase 32 L (39-308) U/L Troponin I Less than 0.02 L (0.02-0.05) ng/mL Total Protein 6.8 (6.4-8.2) g/dL Albumin 3.4 (3.4-5.0) g/dL TSH (0.358-3.740) uIU/mL Free T4 (0.76-1.46) ng/dL 02/22/18 02/22/18 02/22/18 Range/Units 15:04 15:04 15:04 WBC (4.0-11.0) th/mm3 RBC (4.50-5.90) mil/mm3 Hgb (13.0-17.0) gm/dL Hct (39.0-51.0) % MCV (80.0-100.0) fL MCH (27.0-34.0) pg MCHC (32.0-36.0) % RDW (11.6-17.2) % Plt Count (150-450) th/mm3 MPV (7.0-11.0) fL Neut % (Auto) (16.0-70.0) % Lymph % (Auto) (9.0-44.0) % Crisp % (Auto) (0.0-8.0) % Eos % (Auto) (0.0-4.0) % Baso % (Auto) (0.0-2.0) % Neut # (Auto) (1.8-7.7) th/mm3 Lymph # (Auto) (1.0-4.8) th/mm3 Crisp # (Auto) (0.0-0.9) th/mm3 Eos # (Auto) (0.0-0.4) th/mm3 Baso # (Auto) (0.0-0.2) th/mm3 WBC Differential Differential Comment Sodium (136-145) meq/L Potassium (3.5-5.1) meq/L Chloride (98-107) meq/L Carbon Dioxide (21.0-32.0) meq/L Anion Gap (5-15) meq/L BUN (7-18) mg/dL Creatinine (0.60-1.30) mg/dL Estimated GFR (>89) mL/min Random Glucose (74-106) mg/dL Hemoglobin A1c 5.5 (4.3-6.0) % Calcium (8.5-10.1) mg/dL Phosphorus (2.5-4.9) mg/dL Magnesium (1.5-2.5) mg/dL Total Bilirubin (0.2-1.0) mg/dL AST (15-37) U/L ALT (12-78) U/L Alkaline Phosphatase (45-117) U/L Total Creatine Kinase (39-308) U/L Troponin I (0.02-0.05) ng/mL Total Protein (6.4-8.2) g/dL Albumin (3.4-5.0) g/dL TSH 2.460 (0.358-3.740) uIU/mL Free T4 1.27 (0.76-1.46) ng/dL 02/23/18 02/23/18 Range/Units 07:36 07:36 WBC 3.7 L (4.0-11.0) th/mm3 RBC 3.69 L (4.50-5.90) mil/mm3 Hgb 10.1 L (13.0-17.0) gm/dL Hct 29.4 L (39.0-51.0) % MCV 79.7 L (80.0-100.0) fL MCH 27.5 (27.0-34.0) pg MCHC 34.5 (32.0-36.0) % RDW 18.1 H (11.6-17.2) % Plt Count 229 (150-450) th/mm3 MPV 5.5 L (7.0-11.0) fL Neut % (Auto) 86.9 H (16.0-70.0) % Lymph % (Auto) 7.7 L (9.0-44.0) % Crisp % (Auto) 1.7 (0.0-8.0) % Eos % (Auto) 2.9 (0.0-4.0) % Baso % (Auto) 0.8 (0.0-2.0) % Neut # (Auto) 3.3 (1.8-7.7) th/mm3 Lymph # (Auto) 0.3 L (1.0-4.8) th/mm3 Crisp # (Auto) 0.1 (0.0-0.9) th/mm3 Eos # (Auto) 0.1 (0.0-0.4) th/mm3 Baso # (Auto) 0.0 (0.0-0.2) th/mm3 WBC Differential . Differential Comment Auto diff final Sodium 136 (136-145) meq/L Potassium 5.2 H D (3.5-5.1) meq/L Chloride 103 (98-107) meq/L Carbon Dioxide 28.9 (21.0-32.0) meq/L Anion Gap 4 L (5-15) meq/L BUN 14 (7-18) mg/dL Creatinine 1.05 (0.60-1.30) mg/dL Estimated GFR 73 L (>89) mL/min Random Glucose 80 (74-106) mg/dL Hemoglobin A1c (4.3-6.0) % Calcium 8.7 (8.5-10.1) mg/dL Phosphorus 3.3 D (2.5-4.9) mg/dL Magnesium 2.0 (1.5-2.5) mg/dL Total Bilirubin 0.4 (0.2-1.0) mg/dL AST 9 L (15-37) U/L ALT 12 (12-78) U/L Alkaline Phosphatase 76 (45-117) U/L Total Creatine Kinase 38 L (39-308) U/L Troponin I Less than 0.02 L (0.02-0.05) ng/mL Total Protein 6.3 L (6.4-8.2) g/dL Albumin 3.1 L (3.4-5.0) g/dL TSH (0.358-3.740) uIU/mL Free T4 (0.76-1.46) ng/dL Imaging Data Attestation: I personally reviewed and interpreted this imaging study as follows : Radiologist's impression: Head CT 02/22/18 14:50 CONCLUSION: 1. No acute intracranial abnormality. . Head MRI 02/22/18 14:50 CONCLUSION: 1. Negative MR Brain with and without contrast. Discharge Plan Discharge Disposition Patient Disposition: 30 Still Patient Discharge Condition Condition: Stable Discharge Order Discharge Orders: Discharge Order (Routine); Ordered 02/23/18 Ordered By: Shameka Boo Discharge Details Anticipated Discharge Date: 02/23/18 Diagnosis: Seizure Physicians Team ED Provider: Shubham Dee Primary Care Provider: Primary Care Jasmin Finley Attending Provider: Shameka Boo Other Providers: Cheri Ellison ; [facility],Insurance Discharge Interventions Interventions: ED Discharge Assessment Last Done: 02/22/18 20:12 Status ED Status: Left Department Discharge Information Discharge Date/Time: 02/22/18 20:13
[2018-02-22 15:38] LABS: Baso % (Auto) 0.7 % (0.0-2.0); Eos # (Auto) 0.1 th/mm3 (0.0-0.4); Hematocrit 33.3 % (39.0-51.0); Hemoglobin 10.8 gm/dL (13.0-17.0); Lymph # (Auto) 0.3 th/mm3 (1.0-4.8); Lymph % (Auto) 8.8 % (9.0-44.0); Mean Corpuscular HGB Conc 32.4 % (32.0-36.0); Mean Corpuscular Hemoglobin 26.9 pg (27.0-34.0); Mean Corpuscular Volume 82.9 fL (80.0-100.0); Mean Platelet Volume 5.7 fL (7.0-11.0); Mono # (Auto) 0.1 th/mm3 (0.0-0.9); Mono % (Auto) 2.5 % (0.0-8.0); Neut # (Auto) 3.2 th/mm3 (1.8-7.7); Platelet Count 274 th/mm3 (150-450); Red Blood Count 4.02 mil/mm3 (4.50-5.90); Red Cell Distribution Width 18.7 % (11.6-17.2); White Blood Count 3.7 th/mm3 (4.0-11.0)
[2018-02-22 15:50] LABS: Alanine Aminotransferase 13 U/L (12-78); Albumin 3.4 g/dL (3.4-5.0); Anion Gap 6 meq/L (5-15); Aspartate Aminotransferase 12 U/L (15-37); Blood Urea Nitrogen 17 mg/dL (7-18); Calcium 8.7 mg/dL (8.5-10.1); Carbon Dioxide 27.3 meq/L (21.0-32.0); Chloride 105 meq/L (98-107); Glomerular Filtration Rate 70 mL/min (>89); Glucose,Random 105 mg/dL (74-106); Magnesium 2.1 mg/dL (1.5-2.5); Phosphorus 1.9 mg/dL (2.5-4.9); Potassium 3.9 meq/L (3.5-5.1); Sodium 138 meq/L (136-145)
[2018-02-22 15:52] LABS: Alkaline Phosphatase 75 U/L (45-117); Total Protein 6.8 g/dL (6.4-8.2)
--- NOTE | 2018-02-22 16:44 | MR ---
EXAM DATE: 02/22/2018 4:34 PM EST AGE/SEX: 57 years / Male INDICATIONS: Seizures. CLINICAL DATA: This is the patient's initial encounter. Patient reports that signs and symptoms have been present for 1 day and indicates a pain score of 0/10. MEDICAL/SURGICAL HISTORY: Carcinoma, lung. None. [place] [facility] [place]. . TECHNIQUE: Multiplanar, multisequence examination of the brain was performed without and with 8cc ml Gadavist (gadobutrol) contrast as a single exam dose. FINDINGS: Cerebrum: The ventricles are normal for age. No evidence of midline shift, mass lesion, hemorrhage or acute infarction. No extraaxial fluid collections are seen. The pituitary gland and suprasellar cistern are normal in configuration. White Matter: No significant signal abnormalities are seen in the white matter. Posterior Fossa: The cerebellum and brainstem are intact. The 4th ventricle is midline. The cerebel lopontine angle is unremarkable. The cerebellar tonsils are normal in position. Diffusion Imaging: No focal areas of restricted diffusion are seen. No evidence of acute infarction . Extracranial: The visualized portions of the orbits and paranasal sinuses are unremarkable. Post Contrast: No abnormal areas of parenchymal or dural enhancement. No evidence of blood-brain ba rrier breakdown. CONCLUSION: 1. Negative MR Brain with and without contrast. Electronically signed by: Roger Muller MD 02/22/2018 4:43 PM EST
--- NOTE | 2018-02-22 17:17 | CT ---
EXAM DATE: 02/22/2018 5:13 PM EST AGE/SEX: 57 years / Male INDICATIONS: Possible seizure, altered mental status. CLINICAL DATA: This is the patient's initial encounter. Patient reports that signs and symptoms have been present for 1 day and indicates a pain score of 0/10. MEDICAL/SURGICAL HISTORY: Carcinoma, lung. Chronic obstructive pulmonary disease. DVT, stage 4 viki g ca None. RADIATION DOSE: 37.77 CTDI (mGy) COMPARISON: [facility] – [place], [place] HEAD W & W/O CONTRAST, 02/22/2018. . TECHNIQUE: CT of the head without contrast. Using automated exposure control and adjustment of the mA and/or kV according to patient size, radiation dose was kept as low as reasonably achievable to ob tain optimal diagnostic quality images. DICOM format image data is available electronically for revi ew and comparison. FINDINGS: Cerebrum: The ventricles are normal for age. No evidence of midline shift, mass lesion, hemorrhage o r acute infarction. No extraaxial fluid collections are seen. Posterior Fossa: The cerebellum and brainstem are intact. The 4th ventricle is midline. The cerebe llopontine angle is unremarkable. Extracranial: The visualized portion of the orbits is intact. Skull: The calvaria is intact. No evidence of skull fracture. Post Contrast: No abnormal areas of enhancement or mass. CONCLUSION: 1. No acute intracranial abnormality. . Electronically signed by: David Wilson MD 02/22/2018 5:16 PM EST
[2018-02-22] MEDS ORDERED: Gadobutrol PF 10 MMOL/10 ML Vial (for RAD) IV.SIG ONE (17:41)
[2018-02-22] MEDS ORDERED: Acetaminophen 325 MG Tablet PO PRN ×2 (18:18→18:21)
[2018-02-22] MEDS ORDERED: Naloxone Inj 0.4 MG/ML Vial IV.PUSH PRN (18:21)
[2018-02-22] MEDS ORDERED: Zolpidem Tartrate 5 MG Tablet PO PRN (18:21)
[2018-02-22] MEDS ORDERED: oxyCODONE/Acetaminophen 10/325 Tablet PO PRN (18:21)
[2018-02-22] MEDS ORDERED: Bisacodyl 10 MG Supp RECTAL PRN (18:21)
[2018-02-22] MEDS ORDERED: Morphine Inj 4 MG/ML Vial IV.PUSH PRN ×3 (18:21)
[2018-02-22] MEDS ORDERED: Morphine Sulfate Inj 2 MG/ML Vial IV.PUSH PRN (18:21)
[2018-02-22] MEDS ORDERED: guaiFENesin 600 MG ER Tablet PO PRN (18:45)
--- NOTE | 2018-02-22 18:47 | P.HPIM ---
History of Present Illness Service: [facility] Primary Care Physician: No Primary Care Physician Chief Complaint: POSSIBLE SEIZURE History of Present Illness: Patient is a 57-year-old gentleman brought in with possible seizure. Patient has a history of a repeat CT scan of the thorax with out known residuals was brought in by his son for seizures and confusion. Patient has a history of poorly differentiated squamous cell carcinoma of the right lung apex with a Pancoast tumor. He had recently received radiation and chemotherapy. Patient recently had a CAT scan of the chest without available results. Patient son states that the patient started having recurrent seizure episodes since 1230 this afternoon. Seizure episodes were described as generalized tonic -clonic seizures. The patient complains of headache intermittently the seizure episodes last several minutes for each episode. No history of urinary or bowel incontinence. Patient did not injure himself during the seizure episodes patient's son states that there is no previous history of seizure. Patient is an ex-smoker. Patient also has a history of COPD. Denies any tongue biting. Denies any precipitating events but there is lots of stress going on in the household today with a son being thrown out of the house. We will place in observation. We will get an EEG. We will consult neurology. These appear to be pseudoseizure in nature with all the stressors in his life and anxiety going on will make sure he has Ativan available Review of Systems All other systems reviewed negative except as stated in HPI PMFSH - History History Provided By: Patient, Family Member - Medical History Medical History: Medical History (Last Reviewed 02/22/18 @ 15:00 by Shubham Dee MD) Lung mass No significant past surgical history Pulmonary nodules/lesions, multiple Tobacco abuse, in remission - Surgical History Surgical History: Surgical History (Last Updated 02/22/18 @ 18:29 by Srinivasan Rosales DO) History of lung biopsy - Family History Family History: Family History (Last Updated 02/22/18 @ 18:30 by Srinivasan Rosales DO) Other Family history normal - Social History I have reviewed the patient's Social History: Yes - Tobacco History Second Hand Smoke Exposure: No Tobacco Use In Past 30 Days: No Smoking Status: Former smoker Tobacco Type: Cigarettes Packs Per Day: 1 Years Smoked: 42 Smoking End Date: June 2017 - Alcohol History How Often Do You Have a Drink Containing Alcohol: Never - Substance Use History Substance History: Active Abuse - Substance Use Type Marijuana Status: Active Route Used: By Mouth - Travel History History of Recent Travel: No Recent Travel in the [place] Within the Last 8 Weeks: No Recent Travel Out of the Country Within the Last 8 Weeks: No - Immunization History Tetanus Immunization: Unsure Medications and Allergies Active Medications: Active Medications Acetaminophen (Tylenol) 650 mg PO Q4H PRN PRN Reason: PAIN SCALE 1 TO 10 Acetaminophen (Tylenol) 650 mg PO Q4H PRN PRN Reason: Temp > 100.4 Al Hydroxide/Mg Hydroxide (Milk Of Magnesia Liq) 30 ml PO Q12H PRN PRN Reason: Mild Constipation Bisacodyl (Dulcolax Supp) 10 mg RECTAL DAILY PRN PRN Reason: SEVERE CONSITIPATION Enoxaparin Sodium (Lovenox Inj) 40 mg SQ Q24H JEREMY Sodium Chloride (Ns Inj) 1,000 mls @ 75 mls/hr IV.CONT .[id number] JEREMY Lactulose (Lactulose Liq) 30 ml PO DAILY PRN PRN Reason: SEVERE CONSITIPATION Morphine Sulfate (Morphine Inj) 2 mg IV.PUSH Q3H PRN PRN Reason: PAIN 3-5; IF UABLE TO TAKE PO Morphine Sulfate (Morphine Inj) 4 mg IV.PUSH Q3H PRN PRN Reason: PAIN 6-10;IF UNABLE TO TAKE PO Morphine Sulfate (Morphine Inj) 4 mg IV.PUSH Q3H PRN PRN Reason: BREAKTHROUGH PAIN Morphine Sulfate (Morphine Inj) 4 mg IV.PUSH Q1H PRN PRN Reason: Pain Scale 7-10 (Intractable) Naloxone HCl (Narcan Inj) 0.4 mg IV.PUSH UNSCH PRN PRN Reason: SEE LABEL COMMENTS Non-Formulary Medication (Ondansetron Hcl [Ondansetron Hcl]) 8 mg PO QID PRN PRN Reason: Nausea Ondansetron HCl (Zofran Inj) 4 mg IV.PUSH Q6H PRN PRN Reason: NAUSEA OR VOMITING Oxycodone/Acetaminophen (Percocet 10/325 Mg) 1 tab PO Q6H PRN PRN Reason: PAIN SCALE 6 TO 10 Oxycodone/Acetaminophen (Percocet 5/325 Mg) 1 tab PO Q6H PRN PRN Reason: PAIN SCALE 3 TO 5 Prednisone (Deltasone) 10 mg PO DAILY [facility] Senna/Docusate Sodium (Jacque-Colace) 1 tab PO BID JEREMY Sennosides (Senokot) 17.2 mg PO Q12H PRN PRN Reason: Moderate Constipation Sodium Chloride (Ns Flush) 2 ml IV.FLUSH BID JEREMY Sodium Chloride (Ns Flush) 2 ml IV.FLUSH PRN PRN PRN Reason: FLUSH AFTER USING IV ACCESS Zolpidem Tartrate (Ambien) 5 mg PO HS PRN PRN Reason: INSOMNIA Allergies Allergy/AdvReac Type Severity Reaction Status Date / Time erythromycin base Allergy Intermediate Hives Verified 02/22/18 14:22 Home Medications Medication Instructions Recorded Confirmed Type ondansetron HCl 8 mg PO QID PRN 02/22/18 02/22/18 History oxycodone-acetaminophen 1 tab PO Q4H PRN 02/22/18 02/22/18 History prednisone 10 mg PO DAILY 02/22/18 02/22/18 History prochlorperazine maleate 10 mg PO TID PRN 02/22/18 02/22/18 History Exam Vital signs: Vital Signs 02/22/18 13:53 02/22/18 14:24 02/22/18 15:00 Temperature 97.5 F L Pulse Rate 104 H 93 H 89 Respiratory Rate 16 24 16 Blood Pressure 153/93 H 162/89 H 143/88 H Pulse Oximetry 100 98 99 02/22/18 17:35 Temperature Pulse Rate 70 Respiratory Rate 17 Blood Pressure 128/86 Pulse Oximetry 99 Intake & Output 02/21/18 02/22/18 02/22/18 18:59 06:59 18:59 Weight 82.554 kg Narrative: GENERAL: Awake alert and oriented x3 talkative and cooperative SKIN: Warm and dry. HEAD: Atraumatic. Normocephalic. EYES: Pupils equal and round. No scleral icterus. No injection or drainage. EOMI ENT: No nasal bleeding or discharge. Mucous membranes pink and moist. Tongue is midline NECK: Trachea midline. No JVD. Supple CARDIOVASCULAR: Regular rate and rhythm. S1-S2 no S3 or S4 RESPIRATORY: No accessory muscle use. Clear to auscultation. Breath sounds equal bilaterally. GASTROINTESTINAL: Abdomen soft, non-tender, nondistended. Hepatic and splenic margins not palpable. MUSCULOSKELETAL: Extremities without clubbing, cyanosis, or edema. No obvious deformities. NEUROLOGICAL: Awake and alert. No obvious cranial nerve deficits. Motor grossly within normal limits. Five out of 5 muscle strength in the arms and legs. Normal speech. No jerking movements noted at the time of my exam had been given Ativan earlier PSYCHIATRIC: Appropriate mood and affect; insight and judgment normal. Results - Labs CBC & Chem 7: 02/22/18 15:04 02/22/18 15:04 Labs: Short CBC 02/22/18 Range/Units 15:04 WBC 3.7 L (4.0-11.0) th/mm3 Hgb 10.8 L (13.0-17.0) gm/dL Hct 33.3 L (39.0-51.0) % Plt Count 274 (150-450) th/mm3 BMP 02/22/18 15:04 Sodium 138 Potassium 3.9 Chloride 105 Carbon Dioxide 27.3 BUN 17 Creatinine 1.08 Calcium 8.7 Liver Function 02/22/18 Range/Units 15:04 Total Bilirubin 0.3 (0.2-1.0) mg/dL AST 12 L (15-37) U/L ALT 13 (12-78) U/L Alkaline Phosphatase 75 (45-117) U/L Albumin 3.4 (3.4-5.0) g/dL - Imaging Impressions Head CT 02/22/18 14:50 CONCLUSION: 1. No acute intracranial abnormality. . Head MRI 02/22/18 14:50 CONCLUSION: 1. Negative MR Brain with and without contrast. Caprini VTE Risk Assessment Caprini VTE Risk Assessment: Moderate/High Risk (score >= 2) Caprini Risk Assessment Model: Point Value = 1 Point Value = 2 Point Value = 3 Point Value = 5 Age 41-60 Minor surgery BMI > 25 kg/m2 Swollen legs Varicose veins or History of unexplained or recurrent spontaneous Oral contraceptives or hormone replacement Sepsis (< 1 month) Serious lung disease, including pneumonia (< 1 month) Abnormal pulmonary function Acute myocardial infarction Congestive heart failure (< 1 month) History of inflammatory bowel disease Medical patient at bed rest Age 61-74 Arthroscopic surgery Major open surgery (> 45 min) Laparoscopic surgery (> 45 min) Malignancy Confined to bed (> 72 hours) Immobilizing plaster cast Central venous access Age >= 75 History of VTE Family history of VTE Factor V Leiden Prothrombin [id number] Lupus anticoagulant Anticardiolipin antibodies Elevated serum homocysteine Heparin-induced thrombocytopenia Other congenital or acquired thrombophilia Stroke (< 1 month) Elective arthroplasty Hip, pelvis, or leg fracture Acute spinal cord injury (< 1 month) Prophylaxis Regimen: Total Risk Factor Score Risk Level Prophylaxis Regimen 0-1 Low Early ambulation 2 Moderate Order ONE of the following: *Sequential Compression Device (SCD) *Heparin 5000 units SQ BID 3-4 Higher Order ONE of the following medications: *Heparin 5000 units SQ TID *Enoxaparin/Lovenox 40 mg SQ daily (WT < 150 kg, CrCl > 30 mL/min) *Enoxaparin/Lovenox 30 mg SQ daily (WT < 150 kg, CrCl > 10-29 mL/min) *Enoxaparin/Lovenox 30 mg SQ BID (WT < 150 kg, CrCl > 30 mL/min) AND/OR *Sequential Compression Device (SCD) 5 or more Highest Order ONE of the following medications: *Heparin 5000 units SQ TID (Preferred with Epidurals) *Enoxaparin/Lovenox 40 mg SQ daily (WT < 150 kg, CrCl > 30 mL/min) *Enoxaparin/Lovenox 30 mg SQ daily (WT < 150 kg, CrCl > 10-29 mL/min) *Enoxaparin/Lovenox 30 mg SQ BID (WT < 150 kg, CrCl > 30 mL/min) AND *Sequential Compression Device (SCD) Assessment and Plan - Plan Seizure versus pseudoseizure -Suspect pseudoseizure -Anxiety with lots of stress going on in his life and trying to EVICT a son from the house -We will get EEG -We will have Ativan available -Consult neurology -PT and OT to eval and treat Tobacco abuse by history -Continues to not smoke -Recommend continued smoking cessation -Right lung cancer with Pancoast tumor not amenable to surgical resection status post radiation in 25 treatments and 4 courses of chemo -POORLY DIFFERENTIATED NON-SMALL CELL CARCINOMA of the right lung DUONEBS PRN MUCINEX Anemia status post chemotherapy Anxiety -We will make Ativan available DVT and GI prophylaxis DVT prophylaxis with Lovenox GI prophylaxis with Pepcid Code Status: FULL CODE Discussed Condition With: RN AND PT AND FAMILY AND ER PHYSICIAN Discharge Planning: PENDING EEG BEING NEGATIVE SUSPECTED PSEUDOSEIZURES
[2018-02-22 19:04] LABS: Creatine Kinase 32 U/L (39-308)
[2018-02-22] MEDS ORDERED: Enoxaparin Inj 40 MG/0.4 ML Syringe SQ SCH (20:00)
[2018-02-22] MEDS: Senna/Docusate Sodium 8.6/50 MG Tablet PO SCH (21:17)
[2018-02-22] MEDS: Famotidine 20 MG Tablet PO SCH (21:17)
[2018-02-22] MEDS: Sod Chloride 0.9% Inj 1,000 ML IV.CONT SCH (21:17)
[2018-02-23 08:00] LABS: Baso % (Auto) 0.8 % (0.0-2.0); Eos # (Auto) 0.1 th/mm3 (0.0-0.4); Eos % (Auto) 2.9 % (0.0-4.0); Hematocrit 29.4 % (39.0-51.0); Hemoglobin 10.1 gm/dL (13.0-17.0); Lymph # (Auto) 0.3 th/mm3 (1.0-4.8); Lymph % (Auto) 7.7 % (9.0-44.0); Mean Corpuscular HGB Conc 34.5 % (32.0-36.0); Mean Corpuscular Hemoglobin 27.5 pg (27.0-34.0); Mean Corpuscular Volume 79.7 fL (80.0-100.0); Mean Platelet Volume 5.5 fL (7.0-11.0); Mono # (Auto) 0.1 th/mm3 (0.0-0.9); Mono % (Auto) 1.7 % (0.0-8.0); Neut # (Auto) 3.3 th/mm3 (1.8-7.7); Neut % (Auto) 86.9 % (16.0-70.0); Platelet Count 229 th/mm3 (150-450); Red Blood Count 3.69 mil/mm3 (4.50-5.90); Red Cell Distribution Width 18.1 % (11.6-17.2); White Blood Count 3.7 th/mm3 (4.0-11.0)
--- NOTE | 2018-02-23 08:04 | P.PNIM ---
Subjective Interval history: Pt seen and examined. Reports feeling fine and at his baseline. Does not recall any "seizure" episodes. Denies headache. No CP or SOB. Tolerating diet. Physical Exam Vital signs: Vital Signs 02/22/18 13:53 02/22/18 14:24 02/22/18 15:00 Temperature 97.5 F L Pulse Rate 104 H 93 H 89 Respiratory Rate 16 24 16 Blood Pressure 153/93 H 162/89 H 143/88 H Pulse Oximetry 100 98 99 02/22/18 17:35 02/22/18 20:00 02/22/18 22:57 Temperature 97.5 F L Pulse Rate 70 80 Respiratory Rate 17 18 Blood Pressure 128/86 134/84 Pulse Oximetry 99 99 97 02/23/18 04:00 Temperature 97.6 F Pulse Rate 78 Respiratory Rate 17 Blood Pressure 124/80 Pulse Oximetry 99 Intake & Output 02/22/18 02/23/18 02/23/18 18:59 06:59 18:59 Weight 82.554 kg Narrative: GENERAL: WN, WD male resting in bed in [facility]. SKIN: Warm and dry. HEENT: AT/NC. Pupils equal and round. MMM. NECK: Supple no tender LAD or JVD. HEART: RRR no m/r/g. LUNGS: CTAB without wheezes or crackles. ABDOMEN: +BS, soft, NT, ND. EXTREMITIES: No LE edema. Calves supple and nontender. NEURO: Awake, alert, and oriented. CN II-XII intact. UE and LE strength 5/5 bilaterally. Results - Labs CBC & Chem 7: 02/23/18 07:36 02/23/18 07:36 Laboratory Results - last 24 hr 02/22/18 02/22/18 02/22/18 15:04 15:04 15:04 WBC 3.7 L RBC 4.02 L Hgb 10.8 L Hct 33.3 L MCV 82.9 MCH 26.9 L MCHC 32.4 RDW 18.7 H Plt Count 274 MPV 5.7 L Neut % (Auto) 85.0 H Lymph % (Auto) 8.8 L Calloway % (Auto) 2.5 Eos % (Auto) 3.0 Baso % (Auto) 0.7 Neut # (Auto) 3.2 Lymph # (Auto) 0.3 L Calloway # (Auto) 0.1 Eos # (Auto) 0.1 Baso # (Auto) 0.0 WBC Differential . Differential Comment Auto diff final Sodium 138 Potassium 3.9 Chloride 105 Carbon Dioxide 27.3 Anion Gap 6 BUN 17 Creatinine 1.08 Estimated GFR 70 L Random Glucose 105 Calcium 8.7 Phosphorus 1.9 L Magnesium 2.1 Total Bilirubin 0.3 AST 12 L ALT 13 Alkaline Phosphatase 75 Total Creatine Kinase 32 L Troponin I Less than 0.02 L Total Protein 6.8 Albumin 3.4 TSH Free T4 02/22/18 02/22/18 15:04 15:04 WBC RBC Hgb Hct MCV MCH MCHC RDW Plt Count MPV Neut % (Auto) Lymph % (Auto) Calloway % (Auto) Eos % (Auto) Baso % (Auto) Neut # (Auto) Lymph # (Auto) Calloway # (Auto) Eos # (Auto) Baso # (Auto) WBC Differential Differential Comment Sodium Potassium Chloride Carbon Dioxide Anion Gap BUN Creatinine Estimated GFR Random Glucose Calcium Phosphorus Magnesium Total Bilirubin AST ALT Alkaline Phosphatase Total Creatine Kinase Troponin I Total Protein Albumin TSH 2.460 Free T4 1.27 - Imaging Impressions Head CT 02/22/18 14:50 CONCLUSION: 1. No acute intracranial abnormality. . Head MRI 02/22/18 14:50 CONCLUSION: 1. Negative MR Brain with and without contrast. 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 1. Witnessed convulsions, questionable seizure - Pt with witnessed convulsive, tonic-clonic type - Differentials include new onset seizure, pseudoseizure, brain mass/metastasis , electrolyte disturbance, medication side effect - Chemistries, TSH, troponin WNL - MRI brain negative - Neuro following, awaiting EEG. If another seizure starting Keppra 500 mg BID - Ativan PRN - Should he have another seizure can immediately check a prolactin level - No driving 2. 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 Valdez and currently undergoing chemo and radiation 3. Anemia - Appears chronic, likely secondary to malignancy - No active bleeding - Hemodynamically stable 4. Anxiety - Ativan PRN DVT prophylaxis: Lovenox Discharge Planning: Pending EEG, if negative can discharge
[2018-02-23] MEDS: Senna/Docusate Sodium 8.6/50 MG Tablet PO SCH (08:22)
[2018-02-23] MEDS: Sod Chloride 0.9% Inj 1,000 ML IV.CONT SCH (08:22)
[2018-02-23] MEDS: Famotidine 20 MG Tablet PO SCH (08:22)
[2018-02-23 08:40] LABS: Alanine Aminotransferase 12 U/L (12-78); Albumin 3.1 g/dL (3.4-5.0); Alkaline Phosphatase 76 U/L (45-117); Anion Gap 4 meq/L (5-15); Aspartate Aminotransferase 9 U/L (15-37); Blood Urea Nitrogen 14 mg/dL (7-18); Calcium 8.7 mg/dL (8.5-10.1); Carbon Dioxide 28.9 meq/L (21.0-32.0); Chloride 103 meq/L (98-107); Glomerular Filtration Rate 73 mL/min (>89); Glucose,Random 80 mg/dL (74-106); Phosphorus 3.3 mg/dL (2.5-4.9); Potassium 5.2 meq/L (3.5-5.1); Sodium 136 meq/L (136-145); Total Protein 6.3 g/dL (6.4-8.2)
[2018-02-23 08:43] LABS: Creatine Kinase 38 U/L (39-308)
[2018-02-23] MEDS ORDERED: predniSONE 10 MG Tablet PO SCH (09:00)
--- NOTE | 2018-02-23 12:34 | MB ---
cc: Cheri Ellison MD DATE: 02/23/2018 REASON FOR CONSULTATION: Possible seizure. HISTORY OF PRESENT ILLNESS: A 57-year-old man who has a history of small cell carcinoma, right lung and right scapula. Follows with Dr. Mckeon. Has undergone chemotherapy and radiation. Came in with a possible seizure. He did CT of the thorax without any residual. Brought in by his son for possible seizure. He states he was arguing with his son trying to get him out of his trailer and he does not remember anything else. Apparently, per note, it says his son stated that he was having recurrent seizure episodes since 12:30 this afternoon. They were described as generalized tonic-clonic. The patient denies any tongue biting or incontinence, but he has quite a few missing teeth. He states currently feels back to baseline and does not have any weakness. 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 He is an ex-smoker. He also has COPD. PAST MEDICAL HISTORY: As stated. SOCIAL HISTORY: Ex-smoker, does not drink. MEDICATIONS: Please refer to the MAR. PHYSICAL EXAMINATION: VITAL SIGNS: Temperature 98.5, pulse 80, respiratory rate 18, blood pressure 127/70. NEUROLOGIC: He is awake and alert. He is fluent. Pupils reactive. Face symmetrical. Tongue midline. There is no laceration. Motor: There is a tremor of the right hand, more on intention and outstretched. No cogwheeling, no drift. Cerebellar otherwise normal. DTRs intact. Deep legs intact as well. He has been ambulating. I observed him ambulating around the area here to the bathroom and back without difficulty. LABORATORY DATA: Reviewed. White count 3.7, hemoglobin 10.1, platelets 229,000. Chemistry: CK 38. GFR 73. Potassium 5.2. Thyroid panel was normal. IMAGING: MRI brain with and without contrast was negative. IMPRESSION: Questionable new onset seizure. Difficult to tell if it was a true seizure or something due to anxiety. Other question also is there any medicine that he may be taking at home that may provoke seizures. At this point, I think we will get the electroencephalogram and observe. If he is stable, can go home. He is not to drive. He needs to follow up with his oncologist as well. If he has another event, I would put him on some Keppra 500 mg twice a day. Continue current care as outlined. MD ANNA Fraire/delaney , 11:01 AM , 11:06 AM
[2018-02-23 12:40] VITALS: RESP 16; O2SAT 99
[2018-02-23] MEDS ORDERED: LORazepam 0.5 MG Tablet PO PRN (12:49)
--- NOTE | 2018-02-23 13:05 | ECG ---
Date Performed: 02/22/2018 Time Performed: 15:18:26 PTAGE: 57 years EKG: Sinus rhythm POSSIBLE RIGHT VENTRICULAR CONDUCTION DELAY BORDERLINE ECG Since the PREVIOUS TRACING , no significant change noted PREVIOUS TRACIN12/05/2017 00.34 DOCTOR: Jamal Wise Interpretating Date/Time 02/23/2018 13:00:18
[2018-02-23 14:32] LABS: Hemoglobin A1c 5.5 % (4.3-6.0)
[2018-02-23 17:25] VITALS: BP 128/81; PULSE 88; TEMP 98.1
--- NOTE | 2018-02-24 08:43 | MG ---
cc: Cheri Ellison MD SUBJECTIVE: Photic stimulation, awake and alert and drowsy. CT negative. MRI negative. Admitted with possible seizure, not on any antiepileptic medicines. The patient exhibits an overall background alpha of 8 Hz, 20-40 microvolts. Photic stimulation did elicit a good posterior driving response symmetrical, well organized background. IMPRESSION: Normal EEG. No epileptiform features. Clinical correlation. MD ANNA Fraire/rafal , 08:25 AM , 08:29 AM
== END 2018-02-23 19:58 | disposition home or self-care (01) ==
LOC: NEDA 13:46 → NEPC 13:46 → NEDA 20:13 → NEPFCDU 20:34
PROVIDERS: ADMIT Family Medicine; ATTEND Family Medicine